=== PATIENT | male | born 1930 | race Caucasian/White ===

== ENCOUNTER 2019-01-17 17:40 | Inpatient (IN) ==
--- NOTE | 2019-01-17 17:57 | Emergency Department Note ---
Disposition Clinical Impression: Pneumonia, Atrial fibrillation, Sepsis, Chronic renal failure, Frail elderly, Anemia, Hypoxemia, History of CHF (congestive heart failure), Elevated troponin, Abnormal EKG Disposition: Admitted As Inpatient General Adult HPI - General Stated complaint: CHF/SOB/Decreased O2 Time Seen by Provider: 01/17/19 17:56 - History of Present Illness HPI Narrative: 88-year-old male with a history of COPD and CHF reports emergency department complaining of cough and shortness of breath. Per report the patient was recently admitted at [facility] subsequently discharged. He saw his primary care physician yesterday, family members report low oxygen levels in the 75% range. There is no history of chest pain. No history of syncope leg swelling or pain or coughing up blood. Fever cough and shortness of breath or noted. There is no history of abdominal pain vomiting diarrhea no confusion or difficulty moving the arms or legs independently no falls or injuries. The patient and family are concerned that he is not improving after being diagnosed with pneumonia and that his O2 levels remained persistently low. - Related Data Home Medications Medication Instructions Recorded Confirmed Acetaminophen [Tylenol] 325 mg PO Q6HR PRN 02/24/17 01/17/19 Metoprolol XL (24 HR) Succ [Toprol 25 mg PO BID 02/24/17 01/17/19 XL] Omeprazole [PriLOSEC] 40 mg PO DAILY 02/24/17 01/17/19 RX: Aspirin 325 mg PO DAILY 02/24/17 01/17/19 Atorvastatin [Lipitor] 40 mg PO HS 01/17/19 01/17/19 Furosemide [Lasix] 40 mg PO DAILY 01/17/19 01/17/19 Levofloxacin [Levaquin] 750 mg PO DAILY 01/17/19 01/17/19 Losartan [Cozaar] 50 mg PO DAILY 01/17/19 01/17/19 Allergies Allergy/AdvReac Type Severity Reaction Status Date / Time No Known Allergies Allergy Verified 08/30/17 04:53 All systems ED: reviewed and negative except as stated. Past Medical History - Past Medical History Medical history: Reports: arthritis, atrial fibrillation, CHF, hypertension, RA Surgical history: Reports: orthopedic, other (c-spine surgery - February 2017) Psychiatric history: Reports: no psych history - Social History Smoking Status: Never smoker Smokeless Tobacco Status: No Alcohol use: Reports: occasionally Drug use: Reports: none Physical Exam - General Limitations: no limitations General appearance: alert, in no apparent distress - Head Head exam: atraumatic, normocephalic, normal inspection - Eye Eye exam: Present: normal appearance, PERRL, EOMI - ENT ENT exam: normal exam, normal oropharynx, mucous membranes moist - Neck Neck exam: Present: normal inspection, full ROM, trachea midline - Chest Chest inspection: Present: symmetric chest wall rise. Absent: tenderness - Respiratory Respiratory exam: Present: wheezes (Worse on right), prolonged expiratory phase. Absent: respiratory distress - Cardiovascular Cardiovascular exam: Present: normal rhythm, tachycardia - Abdominal Exam Abdominal exam: Present: soft, Non-Tender, normal bowel sounds. Absent: tenderness, distention, guarding, rebound, rigidity - Extremities Exam Extremities exam: Present: normal inspection, full ROM, normal capillary refill. Absent: tenderness, pedal edema, joint swelling, calf tenderness - Expanded Lower Extremity Exam Lower leg exam: Absent: Homans' sign - Back Exam Back exam: Present: normal inspection, full ROM. Absent: tenderness, CVA tenderness (R), CVA tenderness (L), vertebral tenderness - Neurological Exam Neurological exam: Present: alert, oriented X3, CN II-XII intact. Absent: motor sensory deficit - Psychiatric Psychiatric exam: Present: normal affect, normal mood - Skin Skin exam: Present: warm, dry, intact, normal color Course Vital Signs Temperature 99.9 F H 01/17/19 18:02 Pulse Rate 120 01/17/19 18:02 Respiratory Rate 22 01/17/19 18:02 Blood Pressure 137/88 01/17/19 18:02 O2 Sat by Pulse Oximetry 98 01/17/19 18:02 Temperature 98.7 F 01/17/19 23:11 Pulse Rate 100 01/17/19 23:11 Respiratory Rate 15 01/17/19 23:11 Blood Pressure 106/65 01/17/19 23:11 O2 Sat by Pulse Oximetry 96 01/18/19 01:16 Oxygen Delivery Oxygen Delivery Nasal Cannula Medical Decision Making - [facility] Narrative Medical decision making narrative: The patient is elderly, hypoxemia, tachycardic and tachypnea, he is requiring oxygen emergency department and appears to have pneumonitis. X-ray abnormal, CT recommended, CT without contrast ordered. The patient was given DuoNeb Solu- Medrol and Levaquin emergency Department blood cultures were sent. Lactic acid negative. The patient's EKG shows atrial fibrillation with left bundle-branch block changes similar to prior. The patient does have an elevated troponin but denies chest pain. Aspirin was ordered. Based on the patient's age, hypoxemia, apparent failed outpatient therapy, history of CHF, renal failure, anemia, persistent tachycardia tachypnea and noted chest x-ray changes, I thought it would be appropriate to admit the patient the hospital. The patient and family are highly agreeable. I discussed the case with the hospitalist on-call who has accepted the patient to their care. - Lab Data Lab results reviewed: Yes I reviewed the patient's lab results. Result diagrams: 01/17/19 18:12 01/17/19 18:12 Lab Results 01/17/19 01/17/19 01/17/19 Range/Units 18:12 18:12 18:12 WBC 5.9 (4.3-11.1) K/mcL RBC 3.47 L (4.19-5.50) M/mcL Hgb 10.9 L (12.9-16.9) g/dL Hct 33.5 L (37.5-50.1) % MCV 96.5 (83.0-100.0) fL MCH 31.4 (28.0-33.3) pg MCHC 32.5 (31.6-35.5) g/dL RDW 14.1 (11.5-14.5) % Plt Count 109 L (140-400) K/mcL MPV 10.7 (9.4-12.4) fL Immature Gran % 0.3 (0-4) % Seg Neutrophils % 84.5 % Lymphocytes % 6.8 % Monocytes % 8.4 % Eosinophils % 0.0 % Basophils % 0.0 % Neutrophils # 5.0 (1.6-8.9) K/mcL Lymphocytes # 0.4 L (0.6-4.6) K/mcL Monocytes # 0.5 (0.0-1.3) K/mcL Eosinophils # 0.0 (0.0-0.6) K/mcL Basophils # 0.0 (0.0-0.2) K/mcL PT 14.7 H (9.4-12.1) Seconds INR 1.3 APTT 33.8 (26.0-36.0) Seconds Sample Site ABG pH (7.32-7.45) pH Units ABG pCO2 (35-45) mmHg ABG pO2 (85-104) mmHg ABG HCO3 (21-27) mEq/L ABG Total CO2 (20-26) mEq/L ABG O2 Saturation (95-98) % ABG Base Excess (-2 to 3) mEq/L Royer Test O2 Delivery Device Inspired O2 (1-15=lpm [id number]=%) Sodium (136-145) mEq/L Potassium (3.5-5.1) mEq/L Chloride (98-107) mEq/L Carbon Dioxide (23-29) mEq/L BUN (8-23) mg/dL Creatinine (0.70-1.30) mg/dL Est GFR ( Amer) (> 60) Est GFR (Non-Af Amer) (> 60) BUN/Creatinine Ratio (6-26) Glucose (70-105) mg/dL Calculated Osmolality (280-300) Lactic Acid (0.5-2.2) mmol/L Calcium (8.6-10.3) mg/dL Total Bilirubin 1.0 (0.3-1.0) mg/dL Direct Bilirubin 0.4 H (0.0-0.2) mg/dL Indirect Bilirubin 0.6 (0.0-1.2) mg/dL AST 54 H (13-39) Units/L ALT 24 (7-52) Units/L Alkaline Phosphatase 85 (34-104) Units/L Troponin I (< 0.04) ng/mL B-Natriuretic Peptide (Less than 100) pg/mL Serum Total Protein 6.4 (6.4-8.9) g/dL Albumin 3.9 (3.5-5.7) g/dL Globulin 2.5 (2.4-3.5) g/dL Albumin/Globulin Ratio 1.6 (1.1-2.2) 01/17/19 01/17/19 01/17/19 Range/Units 18:12 18:12 18:12 WBC (4.3-11.1) K/mcL RBC (4.19-5.50) M/mcL Hgb (12.9-16.9) g/dL Hct (37.5-50.1) % MCV (83.0-100.0) fL MCH (28.0-33.3) pg MCHC (31.6-35.5) g/dL RDW (11.5-14.5) % Plt Count (140-400) K/mcL MPV (9.4-12.4) fL Immature Gran % (0-4) % Seg Neutrophils % % Lymphocytes % % Monocytes % % Eosinophils % % Basophils % % Neutrophils # (1.6-8.9) K/mcL Lymphocytes # (0.6-4.6) K/mcL Monocytes # (0.0-1.3) K/mcL Eosinophils # (0.0-0.6) K/mcL Basophils # (0.0-0.2) K/mcL PT (9.4-12.1) Seconds INR APTT (26.0-36.0) Seconds Sample Site ABG pH (7.32-7.45) pH Units ABG pCO2 (35-45) mmHg ABG pO2 (85-104) mmHg ABG HCO3 (21-27) mEq/L ABG Total CO2 (20-26) mEq/L ABG O2 Saturation (95-98) % ABG Base Excess (-2 to 3) mEq/L Royer Test O2 Delivery Device Inspired O2 (1-15=lpm [id number]=%) Sodium 135 L (136-145) mEq/L Potassium 3.5 (3.5-5.1) mEq/L Chloride 97 L (98-107) mEq/L Carbon Dioxide 24 (23-29) mEq/L BUN 44 H (8-23) mg/dL Creatinine 1.97 H (0.70-1.30) mg/dL Est GFR ( Amer) 39 L (> 60) Est GFR (Non-Af Amer) 32 L (> 60) BUN/Creatinine Ratio 22 (6-26) Glucose 144 H (70-105) mg/dL Calculated Osmolality 294 (280-300) Lactic Acid 1.9 (0.5-2.2) mmol/L Calcium 8.5 L (8.6-10.3) mg/dL Total Bilirubin (0.3-1.0) mg/dL Direct Bilirubin (0.0-0.2) mg/dL Indirect Bilirubin (0.0-1.2) mg/dL AST (13-39) Units/L ALT (7-52) Units/L Alkaline Phosphatase (34-104) Units/L Troponin I 0.31 H* (< 0.04) ng/mL B-Natriuretic Peptide 660 H (Less than 100) pg/mL Serum Total Protein (6.4-8.9) g/dL Albumin (3.5-5.7) g/dL Globulin (2.4-3.5) g/dL Albumin/Globulin Ratio (1.1-2.2) 01/17/19 Range/Units 19:49 WBC (4.3-11.1) K/mcL RBC (4.19-5.50) M/mcL Hgb (12.9-16.9) g/dL Hct (37.5-50.1) % MCV (83.0-100.0) fL MCH (28.0-33.3) pg MCHC (31.6-35.5) g/dL RDW (11.5-14.5) % Plt Count (140-400) K/mcL MPV (9.4-12.4) fL Immature Gran % (0-4) % Seg Neutrophils % % Lymphocytes % % Monocytes % % Eosinophils % % Basophils % % Neutrophils # (1.6-8.9) K/mcL Lymphocytes # (0.6-4.6) K/mcL Monocytes # (0.0-1.3) K/mcL Eosinophils # (0.0-0.6) K/mcL Basophils # (0.0-0.2) K/mcL PT (9.4-12.1) Seconds INR APTT (26.0-36.0) Seconds Sample Site R Radial ABG pH 7.44 (7.32-7.45) pH Units ABG pCO2 35 (35-45) mmHg ABG pO2 75 L (85-104) mmHg ABG HCO3 24 (21-27) mEq/L ABG Total CO2 25 (20-26) mEq/L ABG O2 Saturation 96 (95-98) % ABG Base Excess 0 (-2 to 3) mEq/L Royer Test Positive O2 Delivery Device Cannula Inspired O2 40.0 (1-15=lpm [id number]=%) Sodium (136-145) mEq/L Potassium (3.5-5.1) mEq/L Chloride (98-107) mEq/L Carbon Dioxide (23-29) mEq/L BUN (8-23) mg/dL Creatinine (0.70-1.30) mg/dL Est GFR ( Amer) (> 60) Est GFR (Non-Af Amer) (> 60) BUN/Creatinine Ratio (6-26) Glucose (70-105) mg/dL Calculated Osmolality (280-300) Lactic Acid (0.5-2.2) mmol/L Calcium (8.6-10.3) mg/dL Total Bilirubin (0.3-1.0) mg/dL Direct Bilirubin (0.0-0.2) mg/dL Indirect Bilirubin (0.0-1.2) mg/dL AST (13-39) Units/L ALT (7-52) Units/L Alkaline Phosphatase (34-104) Units/L Troponin I (< 0.04) ng/mL B-Natriuretic Peptide (Less than 100) pg/mL Serum Total Protein (6.4-8.9) g/dL Albumin (3.5-5.7) g/dL Globulin (2.4-3.5) g/dL Albumin/Globulin Ratio (1.1-2.2) - Radiology Data Radiology results reviewed: Yes I reviewed the patient's radiology results.
[2019-01-17 18:32] LABS: Hematocrit 33.5 % (37.5-50.1); Hemoglobin 10.9 g/dL (12.9-16.9); Immature Granulocytes % 0.3 % (0-4); Lymphocytes # 0.4 K/mcL (0.6-4.6); Lymphocytes % 6.8 %; Mean Corpuscular HGB Conc 32.5 g/dL (31.6-35.5); Mean Corpuscular Hemoglobin 31.4 pg (28.0-33.3); Mean Corpuscular Volume 96.5 fL (83.0-100.0); Mean Platelet Volume 10.7 fL (9.4-12.4); Monocytes # 0.5 K/mcL (0.0-1.3); Monocytes % 8.4 %; Platelet Count 109 K/mcL (140-400); Red Blood Count 3.47 M/mcL (4.19-5.50); Red Cell Distribution Width 14.1 % (11.5-14.5); Segmented Neutrophils % 84.5 %
[2019-01-17 18:40] LABS: INR 1.3; Prothrombin Time 14.7 Seconds (9.4-12.1)
[2019-01-17 18:43] LABS: Activated Partial Thrombo Time 33.8 Seconds (26.0-36.0)
[2019-01-17 18:54] LABS: Calcium 8.5 mg/dL (8.6-10.3); Potassium 3.5 mEq/L (3.5-5.1)
[2019-01-17 18:55] LABS: Albumin 3.9 g/dL (3.5-5.7); Albumin/Globulin Ratio 1.6 (1.1-2.2); Bilirubin,Direct 0.4 mg/dL (0.0-0.2); Bilirubin,Indirect 0.6 mg/dL (0.0-1.2); Globulin 2.5 g/dL (2.4-3.5); Total Protein 6.4 g/dL (6.4-8.9)
[2019-01-17] MEDS ORDERED: Levofloxacin 750 MG/150 ML 750 MG/150 ML BAG IVPB ONE (19:04)
[2019-01-17] MEDS ORDERED: Ipratropium/Albuterol Neb 3 ML IH ONE (19:04)
[2019-01-17] MEDS ORDERED: methylPREDNISolone 125 MG/2 ML VIAL IVP ONE (19:04)
[2019-01-17 19:06] LABS: Troponin I 0.31 ng/mL (< 0.04)
[2019-01-17] MEDS ORDERED: Aspirin 325 MG TABLET PO ONE (19:12)
[2019-01-17] MEDS ORDERED: *HR* LORazepam 2 MG/ML VIAL IVP ONE (19:23)
[2019-01-17 19:53] LABS: ABG Base Excess 0 mEq/L (-2 to 3); ABG HCO3 24 mEq/L (21-27); ABG Oxygen Saturation 96 % (95-98); ABG PCO2 35 mmHg (35-45); ABG PH 7.44 pH Units (7.32-7.45); ABG PO2 75 mmHg (85-104); ABG TCO2 25 mEq/L (20-26)
[2019-01-18] MEDS ORDERED: Naloxone 0.4 MG/ML INJ IVP PRN (03:24)
[2019-01-18] MEDS ORDERED: Heparin 25,000 UNIT/250 ML D5W 25,000 UNIT/250 ML IV.SOLN IVC SCH (03:30)
[2019-01-18] MEDS ORDERED: *HR* Heparin 5,000 UNIT/ML VIAL IVP PRN ×2 (03:30)
[2019-01-18] MEDS ORDERED: *HR* Heparin 5,000 UNIT/ML VIAL IVP ONE (03:30)
[2019-01-18] MEDS ORDERED: Albuterol 2.5 MG/3 ML NEBULIZER IH PRN (03:33)
--- NOTE | 2019-01-18 04:40 | Internal Med History&Physical ---
Date of Encounter: 01/18/19 Time of Encounter: 02:40 Internal Medicine - H&P: HPI Chief complaint: Pneumonia Admitted From: Emergency Dept Plans for Post Hospital Care: Home History of present illness: Mr. Oconnor is a 88 year old male Patient presented to the emergency room with shortness of breath and cough. He had recently been seen at prior hospital but was discharged. While visiting his primary care physician he was noted to have oxygen saturation in the mid 70s. His cough is productive of brown sputum. He says he said shortness of breath for 2-3 weeks, but it gradually has become worse. He is not on oxygen at home. He was diagnosed with pneumonia patient, was put on antibiotics but did not improve. His family brought him to the emergency room for further evaluation. In the emergency room patient's temperature was 99.9 initially with a heart rate of 120 and respiratory rate of 22. CBC showed a white count of 5.9, hemoglobin of 10.9 and platelets of 109. BMP showed a creatinine of 1.97 and a GFR of 32. Patient's initial troponin was elevated at 0.31. BNP was 660. Because patient was initially hypoxic, patient was going to be put on BiPAP. An ABG was ordered at that time which was essentially normal aside from a low pO2 of 75. After being on nasal cannula oxygen, patient's oxygen saturations improved. Chest x- ray revealed lung opacity concerning for possible pneumonia and CT was recommended. Chest CT revealed left upper lobe consolidation, likely pneumonia. Also revealed a spiculated right upper lobe nodule measuring 7 mm. He was given breathing treatments and IV steroids as well as Levaquin. EKG showed no acute changes. Because of his elevated troponin, patient was also given aspirin. Patient has denied chest pain. He was admitted to the hospital for further management. Upon my assessment, patient is resting comfortably in hospital bed in no acute distress. He states that his breathing has improved, denies chest pain, abdominal pain, nausea, vomiting, diarrhea and constipation. He denies smoking and alcohol use. He is a full code. Past Med Surg Social Fam HX - Past Medical History Medical history: arthritis, atrial fibrillation, CHF, hypertension, RA Additional medical history: PAF Psychiatric history: no psych history - Past Surgical History Surgical History: orthopedic, other (c-spine surgery - February 2017) Additional surgical history: CARPAL TUNNEL RELEASE. I&D OF HIP - Social History Smoking Status: Never smoker Smokeless Tobacco Status: No Alcohol use: occasionally Drug use: none - Family History Son Hx Family Cardiac Disorders: Yes (a fib, stents, HTN) Internal Medicine - H&P: Meds Acetaminophen [Tylenol] 325 mg PO Q6HR PRN 02/24/17 [History] Aspirin 325 mg PO DAILY 02/24/17 [History] Metoprolol XL (24 HR) Succ [Toprol XL] 25 mg PO BID 02/24/17 [History] Omeprazole [PriLOSEC] 40 mg PO DAILY 02/24/17 [History] Atorvastatin [Lipitor] 40 mg PO HS 01/17/19 [History] Furosemide [Lasix] 40 mg PO DAILY 01/17/19 [History] Levofloxacin [Levaquin] 750 mg PO DAILY 01/17/19 [History] Losartan [Cozaar] 50 mg PO DAILY 01/17/19 [History] Allergy/AdvReac Type Severity Reaction Status Date / Time No Known Allergies Allergy Verified 08/30/17 04:53 All Systems PM: A 10-system review of systems was performed and is negative for pertinent findings except as documented above in the HPI. - Constitutional Vitals: Temp Pulse Resp BP Pulse Ox 97.6 F 80 16 122/88 92 01/18/19 03:46 01/18/19 03:46 01/18/19 03:46 01/18/19 03:46 01/18/19 03:46 General appearance: Present: cooperative, A&O X 3, pleasant, no acute distress, answers questions appropriately Exam: - - Head Head exam: Present: normal inspection - Eye Eye exam: Present: EOMI, normal appearance - Respiratory Respiratory exam: Present: rales, wheezes. Absent: CTAB, respiratory distress, rhonchi - Cardiovascular Cardiovascular exam: Present: irregular rhythm. Absent: diastolic murmur, systolic murmur - GI/Abdominal GI/Abdominal exam: Present: normal bowel sounds, soft. Absent: tenderness - Extremities Exam Extremities exam: Present: warm, radial pulses palpable and symmetrical. Absent: calf tenderness, pedal edema, tenderness - Neurological Exam Neurological exam: Present: no focal deficits, strengths equal and symetr throughout. Absent: motor sensory deficit, facial droop, speech deficit - Skin Skin exam: Present: dry, normal color, warm Internal Med - H&P Results - Labs CBC & Chem 7: 01/17/19 18:12 01/17/19 18:12 Labs: Short CBC 01/17/19 Range/Units 18:12 WBC 5.9 (4.3-11.1) K/mcL Hgb 10.9 L (12.9-16.9) g/dL Hct 33.5 L (37.5-50.1) % Plt Count 109 L (140-400) K/mcL Neutrophils # 5.0 (1.6-8.9) K/mcL BMP 01/17/19 18:12 Sodium 135 L Potassium 3.5 Chloride 97 L Carbon Dioxide 24 BUN 44 H Creatinine 1.97 H Glucose 144 H Calcium 8.5 L Cardiac Enzymes 01/17/19 01/18/19 Range/Units 18:12 01:39 Troponin I 0.31 H* 0.38 H* (< 0.04) ng/mL Liver Function 01/17/19 Range/Units 18:12 Total Bilirubin 1.0 (0.3-1.0) mg/dL Direct Bilirubin 0.4 H (0.0-0.2) mg/dL AST 54 H (13-39) Units/L ALT 24 (7-52) Units/L Alkaline Phosphatase 85 (34-104) Units/L Albumin 3.9 (3.5-5.7) g/dL - ABG Interpretation ABG results: 01/17/19 19:49 ABG pH 7.44 ABG pCO2 35 ABG pO2 75 L ABG HCO3 24 ABG Total CO2 25 ABG O2 Saturation 96 ABG Base Excess 0 - Impressions ITS Impressions Chest X-Ray 01/17/19 17:58 IMPRESSION: Relatively stable left mid and lower lung opacification concerning for possible pneumonia with underlying parenchymal lesion not excluded. Recommend radiographic follow-up after therapeutic interval. If there is persistence of this finding, CT of the chest is advised. D/ / Sanford Gill / Sanford Gill Interpreting Provider: Sanford Gill Chest CT 01/17/19 19:59 IMPRESSION: Left upper lobe consolidation, likely pneumonia. Recommend follow-up in 3 months to document resolution and exclude an underlying lesion. Spiculated right upper lobe nodule measuring 7 mm can be reassessed at follow-up. D/ / 01/17/2019 21:47:10 Valerio Weston MD / [email or web address] Interpreting Provider: Valerio Weston MD - Assessment and Plan (1) Pneumonia Current Visit: Yes Status: Acute Assessment and plan: As seen on lung imaging. Patient has been treated outpatient for this as well with Levaquin. The emergency room gave the patient another dose of Levaquin IV as well. He comes patient failed outpatient management with Levaquin, will add vancomycin and Zosyn. Blood cultures were drawn in the emergency room. Continue antibiotics Follow-up blood cultures Continue to monitor Qualifiers: Pneumonia type: due to unspecified organism Laterality: left Lung location: upper lobe of lung Qualified Code(s): J18.1 - Lobar pneumonia, unspecified organism (2) Acute respiratory failure with hypoxia Current Visit: Yes Status: Acute Assessment and plan: Patient requiring oxygen, does not require oxygen at home. Likely secondary to pneumonia. Treatment as above (3) Atrial fibrillation Current Visit: Yes Status: Acute Assessment and plan: Stable, continue home meds Qualifiers: Atrial fibrillation type: chronic Qualified Code(s): I48.2 - Chronic atrial fibrillation (4) Elevated troponin Current Visit: Yes Status: Acute Assessment and plan: Troponin elevated to 0.38 on recheck. Patient has no chest pain, EKG similar to previous. Patient denies significant cardiac history aside from atrial fibr illation. Hold heparin drip secondary to thrombocytopenia quality assurance monitor body Continue to trend troponins Echocardiogram in the morning Consider cardiology consult (5) History of CHF (congestive heart failure) Current Visit: Yes Status: Acute Assessment and plan: Patient takes Lasix at home, BNP improved from value on the day before his admission. Continue Lasix at discharge (6) Incidental lung nodule, > 3mm and < 8mm Current Visit: Yes Status: Acute Assessment and plan: Patient's lung nodule is approximately 7 mm in the right upper lung. Follow-up outpatient with repeat imaging (7) Thrombocytopenia Current Visit: Yes Status: Acute Assessment and plan: Patient's platelets initially were 109, but on recheck dropped to 80. Hold heparin Continue to monitor for signs of bleeding (8) DVT prophylaxis Current Visit: Yes Status: Acute Assessment and plan: Heparin drip initially due to elevated troponin, however patient's platelets continue to drop on recheck to 80. We will stop the heparin drip for now. SCDs - Time Spent With Patient Total time spent is greater than 50% in coordination of care (as documented) at patient's floor/unit and/or counseling patient: Greater than 35 minutes
[2019-01-18] MEDS: Ipratropium/Albuterol Neb 3 ML IH SCH ×4 (04:43→22:22)
[2019-01-18 05:01] LABS: Red Blood Count 3.18 M/mcL (4.19-5.50)
[2019-01-18 05:03] LABS: Hematocrit 30.9 % (37.5-50.1); Hemoglobin 10.2 g/dL (12.9-16.9); Immature Platelets 5.3 % (1.1-6.1); Mean Corpuscular Hemoglobin 32.1 pg (28.0-33.3); Mean Corpuscular Volume 97.2 fL (83.0-100.0); Mean Platelet Volume 10.7 fL (9.4-12.4); Red Cell Distribution Width 14.1 % (11.5-14.5)
[2019-01-18 05:14] LABS: INR 1.2; Prothrombin Time 13.8 Seconds (9.4-12.1)
[2019-01-18 05:18] LABS: Calcium 8.2 mg/dL (8.6-10.3); Potassium 3.3 mEq/L (3.5-5.1)
[2019-01-18 05:58] LABS: Bilirubin,Urine Negative (Negative); Blood,Urine Moderate (Negative); Color,Urine Yellow (Yellow); Glucose,Urine (UA) Normal (Normal); Ketones,Urine Negative (Negative); Leukocyte Esterase,Urine Negative (Negative); Nitrite,Urine Positive (Negative); PH,Urine 5.5 pH Units (5.0-8.0); Protein,Urine 100 mg/dL (Neg-Trace); Specific Gravity,Urine 1.017 (1.010-1.025); Urobilinogen,Urine Normal (Normal)
[2019-01-18 06:00] LABS: Bacteria,Urine None Seen per hpf (None-Few); Hyaline Casts,Urine None Seen per lpf (None-Few); RBC,Urine 0-3 per hpf (0-3); Squamous Epithelial Cell,Urine Many per lpf (None-Few)
[2019-01-18 06:01] LABS: Clarity,Urine Slightly Hazy (Clear)
[2019-01-18 06:15] LABS: Sperm,Urine Present
[2019-01-18] MEDS: predniSONE 20 MG TABLET PO SCH (08:36)
[2019-01-18] MEDS: Piperacillin/Tazobactam 3.375 GM in 0.9 % Sodium Chloride Mini Bag 100 ML IVPB SCH ×2 (08:36→15:23)
--- NOTE | 2019-01-18 10:28 | Cardiology Consult Note ---
<Chirag Mehta - Last Filed: 01/18/19 10:24> Date of Encounter: 01/18/19 Time of Encounter: 10:25 Assessment and Plan (1) Elevated troponin Current Visit: Yes Status: Acute Troponins 0.31, 0.38, 0.35 in setting of PNA and CKD (LORY?). Suspect demand ischemia. Nondiagnostic for ACS. Pt denies chest pain. ECG LBBB--unclear chronicity. Check TTE to evaluate structure and function. If no significant findings, anticipate sign off. (2) LBBB (left bundle branch block) Current Visit: Yes Status: Acute Unclear chronicity. Follows with Dr. Smith outpt. Check TTE. (3) Atrial fibrillation Current Visit: Yes Status: Chronic Known A-Fib hx. 12 hr tele AVG HR 80, A-Fib. Home meds included Toprol XL 25mg BID. Will resume. [id number] (Age, HTN, CHF). High CVA risk. Per pt, on Xarelto in the past. Rep orts stopped due to bleeding/bruising. Follows with Dr. Smith. Continue ASA only. Aware of increased CVA risk. Qualifiers: Atrial fibrillation type: chronic Qualified Code(s): I48.2 - Chronic atrial fibrillation (4) History of CHF (congestive heart failure) Current Visit: Yes Status: Chronic Hx of CHF, unclear type. Check TTE. Home meds included PO Lasix, BB, ARB. Will resume BB. Creatinine 1.99--ARB and Lasix on hold. BNP 660. Appears euvolemic on exam. Discussion w patient/family: The assessment and plan as outlined above was discussed with the patient and/or family members who expressed understanding and agreement. All questions were an swered. Thank you for involving us in the care of your patient. Please call with any questions. I will discuss all the above with Dr. Kimbrough and make changes as necessary. History of Present Illness Consult date: 01/18/19 Consult reason: Elevated troponin Chief complaint: Dyspnea History of present illness: Mr. Oconnor is a 88 year old male with PMH of A-Fib, CHF (unknown type), HTN, that presented to ED with shortness of breath and cough. He was noted to have O2 sats in the mid 70s. His cough is productive of brown sputum. He says he said shortness of breath for 2-3 weeks, but it gradually has become worse. He reports chest pain only when coughing. BNP was 660. CXR revealed lung opacity concerning for possible pneumonia and CT was recommended. Chest CT revealed left upper lobe consolidation, likely pneumonia. Also revealed a spiculated right upper lobe nodule measuring 7 mm. Troponins 0.31, 0.38, 0.35. Cardiology consulted for further recs. Past Med Surg Social Fam HX - Past Medical History Medical history: arthritis, atrial fibrillation, CHF, hypertension, RA Additional medical history: PAF Psychiatric history: no psych history - Past Surgical History Surgical History: orthopedic, other (c-spine surgery - February 2017) Additional surgical history: CARPAL TUNNEL RELEASE. I&D OF HIP - Social History Smoking Status: Never smoker Smokeless Tobacco Status: No Alcohol use: occasionally Drug use: none - Family History Son Hx Family Cardiac Disorders: Yes (a fib, stents, HTN) Medications and Allergies Acetaminophen [Tylenol] 325 mg PO Q6HR PRN 02/24/17 [History] Aspirin 325 mg PO DAILY 02/24/17 [History] Metoprolol XL (24 HR) Succ [Toprol XL] 25 mg PO BID 02/24/17 [History] Omeprazole [PriLOSEC] 40 mg PO DAILY 02/24/17 [History] Atorvastatin [Lipitor] 40 mg PO HS 01/17/19 [History] Furosemide [Lasix] 40 mg PO DAILY 01/17/19 [History] Levofloxacin [Levaquin] 750 mg PO DAILY 01/17/19 [History] Losartan [Cozaar] 50 mg PO DAILY 01/17/19 [History] Allergy/AdvReac Type Severity Reaction Status Date / Time No Known Allergies Allergy Verified 08/30/17 04:53 All Systems Review: The remainder of the systems were reviewed and are negative - Cardiovascular Cardiovascular: as per HPI, dyspnea at rest, dyspnea on exertion - Respiratory Respiratory: cough, dyspnea Physical Examination Vital Signs, Last 4 Hours Temp Pulse Resp BP Pulse Ox 01/18/19 08:38 99 01/18/19 07:12 98.6 F 76 17 131/85 99 Vital Signs Temp Pulse Resp BP Pulse Ox 01/18/19 08:38 99 01/18/19 07:12 98.6 F 76 17 131/85 99 01/18/19 04:43 18 99 01/18/19 03:46 97.6 F 80 16 122/88 92 01/18/19 01:16 96 01/17/19 23:11 98.7 F 100 15 106/65 98 01/17/19 21:54 26 139/86 01/17/19 19:51 24 96 01/17/19 18:02 99.9 F H 120 22 137/88 98 Intake and Output 01/17/19 01/18/19 01/18/19 23:59 07:59 15:59 Intake Total 150 / 150 Output Total 200 / 200 Balance 150 / 150 -200 / -200 Intake: IV Fluids 150 / 150 Levaquin Premix 750mg/150 mL 150 / 150 750 mg In 150 ml @ 100 mls/hr IVPB ONCE ONE Rx#:[id number] Output: Urine 200 / 200 Other: Weight 75.381 kg 75 kg Blood Glucose* 144 Patient Weight 01/18/19 23:59 Weight 75 kg General: Conversant, No Apparent Distress HEENT: Atraumatic, Normocephaly, Mucus Membranes Moist Neck: No JVD Cardiac: Other (irregularly irregular rhythm) Lungs: Other (rhonchi, wheezes) Neuro: Alert and responsive, No focal deficits noted Abdomen: Soft, Non-Tender Skin: No rashes noted on visualized skin Musculoskeletal: No Chest Wall Tenderness Extremities: No Clubbing, No Cyanosis, No Edema, Normal Pulses Results 01/18/19 04:46 01/18/19 04:46 Lab Results 01/17/19 01/17/19 01/17/19 18:12 18:12 18:12 WBC 5.9 Hgb 10.9 L Hct 33.5 L Plt Count 109 L INR 1.3 APTT 33.8 Sodium Potassium Chloride Carbon Dioxide BUN Creatinine Glucose Calcium Total Bilirubin 1.0 AST 54 H ALT 24 Alkaline Phosphatase 85 Troponin I B-Natriuretic Peptide 01/17/19 01/17/19 01/18/19 18:12 18:12 01:39 WBC Hgb Hct Plt Count INR APTT Sodium 135 L Potassium 3.5 Chloride 97 L Carbon Dioxide 24 BUN 44 H Creatinine 1.97 H Glucose 144 H Calcium 8.5 L Total Bilirubin AST ALT Alkaline Phosphatase Troponin I 0.31 H* 0.38 H* B-Natriuretic Peptide 660 H 01/18/19 01/18/19 01/18/19 04:46 04:46 04:46 WBC 4.6 Hgb 10.2 L Hct 30.9 L Plt Count 80 L INR 1.2 APTT Sodium 136 Potassium 3.3 L Chloride 101 Carbon Dioxide 25 BUN 49 H Creatinine 1.99 H Glucose 144 H Calcium 8.2 L Total Bilirubin AST ALT Alkaline Phosphatase Troponin I B-Natriuretic Peptide 01/18/19 07:20 WBC Hgb Hct Plt Count INR APTT Sodium Potassium Chloride Carbon Dioxide BUN Creatinine Glucose Calcium Total Bilirubin AST ALT Alkaline Phosphatase Troponin I 0.35 H* B-Natriuretic Peptide Short CBC 01/18/19 01/17/19 Range/Units 04:46 18:12 WBC 4.6 5.9 (4.3-11.1) K/mcL Hgb 10.2 L 10.9 L (12.9-16.9) g/dL Hct 30.9 L 33.5 L (37.5-50.1) % Plt Count 80 L 109 L (140-400) K/mcL Neutrophils # 5.0 (1.6-8.9) K/mcL BMP 01/18/19 01/17/19 Range/Units 04:46 18:12 Sodium 136 135 L (136-145) mEq/L Potassium 3.3 L 3.5 (3.5-5.1) mEq/L Chloride 101 97 L (98-107) mEq/L Carbon Dioxide 25 24 (23-29) mEq/L BUN 49 H 44 H (8-23) mg/dL Creatinine 1.99 H 1.97 H (0.70-1.30) mg/dL Glucose 144 H 144 H (70-105) mg/dL Calcium 8.2 L 8.5 L (8.6-10.3) mg/dL Cardiac Enzymes 01/18/19 01/18/19 01/17/19 Range/Units 07:20 01:39 18:12 Troponin I 0.35 H* 0.38 H* 0.31 H* (< 0.04) ng/mL Liver Function 01/17/19 Range/Units 18:12 Total Bilirubin 1.0 (0.3-1.0) mg/dL Direct Bilirubin 0.4 H (0.0-0.2) mg/dL AST 54 H (13-39) Units/L ALT 24 (7-52) Units/L Alkaline Phosphatase 85 (34-104) Units/L Albumin 3.9 (3.5-5.7) g/dL Urine 01/18/19 Range/Units 05:44 Urine Color Yellow (Yellow) Urine Clarity Slightly Hazy (Clear) Urine pH 5.5 (5.0-8.0) pH Units Ur Specific [place] 1.017 (1.010-1.025) Urine Protein 100 H (Neg-Trace) mg/dL Urine Glucose (UA) Normal (Normal) mg/dL Impressions Chest X-Ray 01/17/19 17:58 IMPRESSION: Relatively stable left mid and lower lung opacification concerning for possible pneumonia with underlying parenchymal lesion not excluded. Recommend radiographic follow-up after therapeutic interval. If there is persistence of this finding, CT of the chest is advised. D/ / Sanford Gill / Sanford Gill Interpreting Provider: Sanford Gill Chest CT 01/17/19 19:59 IMPRESSION: Left upper lobe consolidation, likely pneumonia. Recommend follow-up in 3 months to document resolution and exclude an underlying lesion. Spiculated right upper lobe nodule measuring 7 mm can be reassessed at follow-up. D/ / 01/17/2019 21:47:10 [facility] Provider: Valerio Weston MD Active Medications Albuterol Sulfate (Proventil Neb) 2.5 mg IH Q2H PRN PRN Reason: Shortness Of Breath/Wheezing Stop: 07/20/19 03:34 Albuterol/Ipratropium (Duoneb) 3 ml IH QIDR [facility] Stop: 07/20/19 05:01 Last Admin: 01/18/19 10:19 Dose: 3 ml Levofloxacin/Dextrose (Levaquin Premix 750mg/150 Ml) 750 mg in 150 mls @ 100 mls/hr IVPB Q48H [facility]; Protocol Stop: 07/21/19 18:01 Piperacillin Sod/Tazobactam (Sod 3.375 gm/ Sodium Chloride) 100 mls @ 25 mls/hr IVPB Q8HR [facility] Stop: 07/20/19 08:01 Last Admin: 01/18/19 08:36 Dose: 25 mls/hr Naloxone HCl (Narcan) 0.4 mg IVP Q2M PRN PRN Reason: SEE COMMENTS Stop: 07/20/19 03:25 Prednisone (Prednisone) 40 mg PO DAILY [facility] Stop: 07/20/19 09:01 Last Admin: 01/18/19 08:36 Dose: 40 mg Vancomycin HCl (Vancocin) 0 each IVPB RPHPROT PRN PRN Reason: PULSE DOSE Stop: 07/20/19 06:03 - EKG Interpretation EKG results cardiology: personally reviewed (A-Fib rate 109, LBBB), other (12 hr tele AVG HR 80, A-Fib) Consult Discharge Plan - Plan Referrals: Yari Dukes MD [Primary Care Provider] - <Cassie Kimbrough - Last Filed: 01/18/19 15:32> Date of Encounter: 01/18/19 - Attending Attestation Patient was seen and evaluated independently by me. Findings, assessment and plan were discussed at length with patient, questions answered. Agree with nurse practitioner's/resident's documentation. Addition as follows, 88 yoCF ho chronic afib on ASA no A/C due to bleeding on xarelto, CHF unclear EF, HTN, RA. P/w worsening dyspnea 2 wks and pleuritic chest pain. IMP PNA and RUL nodule. ECG Afib RVR, LBBB (unclear chronicity). Trop max 0.38. Tele Afib PVCs. TTE EF 45%, global, mil cLVH, RV n, valve ok, no evidence of PH. Cr 1.9-2, K 3.3. BP stable, B/L scattered rhonchi, IR, no LE edema A: Pneumonia, hypoxemia Mild troponin elevation, type II NSTEMI likely Afib RVR, now rate ok, on ASA 325 (per primary executive services administrator) HFrEF EF 45%, global need prior Echo from Dr Luis STEPHENSON LORY vs CKD P: c/w toprol for rate ctr, up-titration as needed for VR 80-110 after LORY resolved, resume home ARB request prior cardiac records from Dr Luis Kimbrough MD, PhD Assessment and Plan Discussion w patient/family: The assessment and plan as outlined above was discussed with the patient and/or family members who expressed understanding and agreement. All questions were answered. Thank you for involving us in the care of your patient. Please call with any questions. History of Present Illness History of present illness: Mr. Oconnor is a 88 year old male All Systems Review: The remainder of the systems were reviewed and are negative Physical Examination Vital Signs, Last 4 Hours Temp Pulse Resp BP Pulse Ox 01/18/19 11:33 97.4 F L 82 14 118/83 98 Results 01/18/19 04:46 01/18/19 04:46 Lab Results 01/17/19 01/17/19 01/17/19 18:12 18:12 18:12 WBC 5.9 Hgb 10.9 L Hct 33.5 L Plt Count 109 L INR 1.3 APTT 33.8 Sodium Potassium Chloride Carbon Dioxide BUN Creatinine Glucose Calcium Total Bilirubin 1.0 AST 54 H ALT 24 Alkaline Phosphatase 85 Troponin I B-Natriuretic Peptide 01/17/19 01/17/19 01/18/19 18:12 18:12 01:39 WBC Hgb Hct Plt Count INR APTT Sodium 135 L Potassium 3.5 Chloride 97 L Carbon Dioxide 24 BUN 44 H Creatinine 1.97 H Glucose 144 H Calcium 8.5 L Total Bilirubin AST ALT Alkaline Phosphatase Troponin I 0.31 H* 0.38 H* B-Natriuretic Peptide 660 H 01/18/19 01/18/19 01/18/19 04:46 04:46 04:46 WBC 4.6 Hgb 10.2 L Hct 30.9 L Plt Count 80 L INR 1.2 APTT Sodium 136 Potassium 3.3 L Chloride 101 Carbon Dioxide 25 BUN 49 H Creatinine 1.99 H Glucose 144 H Calcium 8.2 L Total Bilirubin AST ALT Alkaline Phosphatase Troponin I B-Natriuretic Peptide 01/18/19 07:20 WBC Hgb Hct Plt Count INR APTT Sodium Potassium Chloride Carbon Dioxide BUN Creatinine Glucose Calcium Total Bilirubin AST ALT Alkaline Phosphatase Troponin I 0.35 H* B-Natriuretic Peptide
[2019-01-18] MEDS: Aspirin 325 MG TABLET PO SCH (12:02)
--- NOTE | 2019-01-18 15:58 | Event Note ---
Date of Encounter: 01/18/19 Time of Encounter: 15:56 Patient seen and examined at bedside. Patient states he feels better. He reports continued cough with yellow sputum production but feels her shortness of breath is improved. On exam he is awake and alert. Lungs are diminished bibasilar, otherwise no rales, wheezes Patient admitted for pneumonia, failed outpatient therapy with Levaquin. Currently on vancomycin, Zosyn, Levaquin. MRSA, respiratory infection panel pending. Strep and legionella urinary antigen pending.
--- NOTE | 2019-01-18 18:05 | Electrocardiograph Report ---
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
[2019-01-18] MEDS: Metoprolol XL (24 HR) Succ 25 MG TAB.ER.24H PO SCH (20:44)
[2019-01-19] MEDS: Piperacillin/Tazobactam 3.375 GM in 0.9 % Sodium Chloride Mini Bag 100 ML IVPB SCH ×2 (00:19→08:18)
[2019-01-19] MEDS: Ipratropium/Albuterol Neb 3 ML IH SCH ×4 (05:12→22:46)
[2019-01-19 06:26] LABS: Mean Corpuscular Volume 97.6 fL (83.0-100.0)
[2019-01-19 06:28] LABS: Basophils % 0.1 %; Hematocrit 32.6 % (37.5-50.1); Hemoglobin 10.5 g/dL (12.9-16.9); Immature Granulocytes % 0.3 % (0-4); Immature Platelets 6.1 % (1.1-6.1); Lymphocytes # 0.5 K/mcL (0.6-4.6); Lymphocytes % 6.8 %; Mean Corpuscular HGB Conc 32.2 g/dL (31.6-35.5); Mean Corpuscular Hemoglobin 31.4 pg (28.0-33.3); Mean Platelet Volume 11.1 fL (9.4-12.4); Monocytes # 0.4 K/mcL (0.0-1.3); Monocytes % 6.4 %; Red Blood Count 3.34 M/mcL (4.19-5.50); Red Cell Distribution Width 14.3 % (11.5-14.5); Segmented Neutrophils % 86.4 %
[2019-01-19 06:32] LABS: Platelet Count 94 K/mcL (140-400)
[2019-01-19 06:45] LABS: Calcium 8.1 mg/dL (8.6-10.3); Magnesium 1.8 mg/dL (1.6-2.6); Potassium 3.2 mEq/L (3.5-5.1)
[2019-01-19] MEDS: predniSONE 20 MG TABLET PO SCH (08:19)
[2019-01-19] MEDS: Aspirin 325 MG TABLET PO SCH (08:19)
[2019-01-19] MEDS: Metoprolol XL (24 HR) Succ 25 MG TAB.ER.24H PO SCH (09:28)
--- NOTE | 2019-01-19 10:10 | Cardiology Progress Note ---
Date of Encounter: 01/19/19 Time of Encounter: 09:57 Assessment and Plan (1) Elevated troponin Current Visit: Yes Status: Acute Troponins 0.31, 0.38, 0.35 in setting of PNA and CKD (LORY?). Suspect demand ischemia. Nondiagnostic for ACS. Pt denies chest pain. ECG LBBB--unclear chronicity. TTE resulted--LVEF 45%. Mild cLVH. Global LV systolic dysfunction. Indeterminate diastolic function. Normal RV structure and function. No evidence of phtn. No significant valvular dysfunction. Mildy reduced EF. Hx of CHF (unclear type). Will request records from Dr. Smith for comparison. Given advanced age, CKD, only mildly reduced EF and no chest pain, will not pursue ischemic evaluation at this time. Will sign off. Reconsult PRN. Pt wishes to start following with [place] [facility]. Will coordinate outpt follow-up in 2-3 weeks. (2) LBBB (left bundle branch block) Current Visit: Yes Status: Acute Unclear chronicity. Follows with Dr. Smith outpt. TTE EF 45%, global. Records requested from Dr. Smith for comparison. (3) Atrial fibrillation Current Visit: Yes Status: Chronic Known A-Fib hx. 12 hr tele AVG HR 89, A-Fib. Home meds included Toprol XL 25mg BID, resumed. [id number] (Age, HTN, CHF). High CVA risk. Per pt, on Xarelto in the past. Reports stopped due to bleeding/bruising. Continue ASA only. Aware of increased CVA risk. Qualifiers: Atrial fibrillation type: chronic Qualified Code(s): I48.2 - Chronic atrial fibrillation (4) History of CHF (congestive heart failure) Current Visit: Yes Status: Chronic Hx of CHF, unclear type in the past. TTE EF 45%, mild global dysfunction. Home meds included PO Lasix, BB, ARB. Resumed BB. Creatinine 2.08--ARB and Lasix on hold. BNP 660. Appears euvolemic on exam. Discussion w patient/family: The assessment and plan as outlined above was discussed with the patient and/or family members who expressed understanding and agreement. All questions were answered. Thank you for involving us in the care of your patient. Please call with any questions. I will discuss all the above with Dr. Kimbrough and make changes as necessary. Subjective Principal diagnosis: PNA, elevated troponin Interval history: Pt reports dyspnea and cough continue. Objective Vital Signs, Last 4 Hours Temp Pulse Resp BP Pulse Ox 01/19/19 09:50 16 94 01/19/19 07:50 98.2 F 86 17 120/67 96 Vital Signs Temp Pulse Resp BP Pulse Ox 01/19/19 09:50 16 94 01/19/19 07:50 98.2 F 86 17 120/67 96 01/19/19 05:12 16 92 01/19/19 04:41 97.8 F 97 18 100/62 90 01/19/19 00:30 97.7 F 89 18 109/55 95 01/18/19 22:22 16 94 01/18/19 20:19 97.7 F 75 18 100/60 92 01/18/19 16:08 16 93 01/18/19 15:31 77 16 85/66 92 01/18/19 11:33 97.4 F L 82 14 118/83 98 01/18/19 10:19 16 92 Intake and Output 01/18/19 01/19/19 01/19/19 23:59 07:59 15:59 Intake Total 100 / 100 340 / 340 Output Total 175 / 175 Balance 100 / 100 -175 / -175 340 / 340 Intake: IV Fluids 100 / 100 100 / 100 Zosyn 3.375 GM In 0.9 % Sodium 100 / 100 100 / 100 Chloride (Mini-Bag +) 100 ML @ 25 mls/hr IVPB Q8HR [facility] Rx#: [id number] Oral 240 / 240 Output: Urine 175 / 175 Other: Meal Breakfast Percent of Meal Consumed 50% # Voids 1 Weight 79.1 kg Patient Weight 01/19/19 23:59 Weight 79.1 kg General: Conversant, No Apparent Distress HEENT: Atraumatic, Normocephaly, Mucus Membranes Moist Neck: Normal carotid pulses Cardiac: Other (irregularly irregular rhythm) Lungs: Other (rhonchi, wheezes) Neuro: Alert and responsive, No focal deficits noted Abdomen: Soft, Non-Tender Skin: No rashes noted on visualized skin Musculoskeletal: No Chest Wall Tenderness Extremities: No Clubbing, No Cyanosis, No Edema, Normal Pulses Results 01/19/19 05:35 01/19/19 05:35 Lab Results 01/19/19 01/19/19 05:35 05:35 WBC 6.9 Hgb 10.5 L Hct 32.6 L Plt Count 94 L Sodium 138 Potassium 3.2 L Chloride 102 Carbon Dioxide 27 BUN 62 H Creatinine 2.08 H Glucose 169 H Calcium 8.1 L Magnesium 1.8 Short CBC 01/19/19 Range/Units 05:35 WBC 6.9 (4.3-11.1) K/mcL Hgb 10.5 L (12.9-16.9) g/dL Hct 32.6 L (37.5-50.1) % Plt Count 94 L (140-400) K/mcL Neutrophils # 6.0 (1.6-8.9) K/mcL BMP 01/19/19 Range/Units 05:35 Sodium 138 (136-145) mEq/L Potassium 3.2 L (3.5-5.1) mEq/L Chloride 102 (98-107) mEq/L Carbon Dioxide 27 (23-29) mEq/L BUN 62 H (8-23) mg/dL Creatinine 2.08 H (0.70-1.30) mg/dL Glucose 169 H (70-105) mg/dL Calcium 8.1 L (8.6-10.3) mg/dL Impressions Echocardiogram 01/18/19 03:33 Impressions: LVEF 45%. Normal LV chamber size and function. Mild concentric left ventricular hypertrophy. Mild global left ventricular systolic dysfunction. Atypical septal motion consistent with bundle branch block. Indeterminate diastolic function. Normal right ventricular structure and function. No evidence of pulmonary hypertension. No significant valvular dysfunction. Left Ventricular Wall Motion: Rest Echo Findings The apex, apical inferior, mid inferior, basal inferior, apical anterior, mid anterior, basal anterior, apical septal, mid inferior septal, basal inferior septal, apical lateral, mid anterior lateral, basal anterior lateral, mid anterior septal, mid inferior lateral, basal anterior septal and basal inferior lateral murry were hypokinetic. Findings: Study Quality * Technically adequate exam. ECG Findings * Atrial fibrillation, BBB. Left Ventricle * LVEF 45%. * Normal LV chamber size and function. * Mild concentric left ventricular hypertrophy. * Mild global left ventricular systolic dysfunction. * Atypical septal motion consistent with bundle branch block. * Indeterminate diastolic function. Right Ventricle * Normal right ventricular structure and function. Left Atrium * Mildly dilated left atrium. Right Atrium * Mildly dilated right atrium. Aortic Valve * Mildly calcified aortic valve leaflets. * Trace aortic regurgitation. * No aortic stenosis. Mitral Valve * Mildly thickened mitral valve leaflets. * Trace mitral regurgitation. * No mitral stenosis. Tricuspid Valve * Normal tricuspid valve structure and function. * Trace tricuspid regurgitation. * No evidence of pulmonary hypertension. Pulmonic Valve * Normal pulmonic valve structure and function. * Trace pulmonic regurgitation. Aorta * Normally sized aortic root. Pericardium * The pericardium appears normal. IVC * Normal IVC dimensions and inspiratory collapse. Pulmonary Artery * Normal visualized portions of the main pulmonary artery. Active Medications Albuterol Sulfate (Proventil Neb) 2.5 mg IH Q2H PRN PRN Reason: Shortness Of Breath/Wheezing Stop: 07/20/19 03:34 Albuterol/Ipratropium (Duoneb) 3 ml IH QIDR [facility] Stop: 07/20/19 05:01 Last Admin: 01/19/19 09:50 Dose: 3 ml Aspirin (Aspirin) 325 mg PO DAILY [facility] Stop: 07/20/19 11:01 Last Admin: 01/19/19 08:19 Dose: 325 mg Diphenhydramine HCl (Benadryl) 25 mg PO HS PRN PRN Reason: Insomnia Stop: 07/20/19 21:04 Last Admin: 01/18/19 22:18 Dose: 25 mg Levofloxacin/Dextrose (Levaquin Premix 750mg/150 Ml) 750 mg in 150 mls @ 100 mls/hr IVPB Q48H [facility]; Protocol Stop: 07/21/19 18:01 Piperacillin Sod/Tazobactam (Sod 3.375 gm/ Sodium Chloride) 100 mls @ 25 mls/hr IVPB Q8HR [facility] Stop: 07/20/19 08:01 Last Admin: 01/19/19 08:18 Dose: 25 mls/hr Metoprolol Succinate (Toprol Xl) 25 mg PO BID [facility] Stop: 07/20/19 21:01 Last Admin: 01/19/19 09:28 Dose: 25 mg Naloxone HCl (Narcan) 0.4 mg IVP Q2M PRN PRN Reason: SEE COMMENTS Stop: 07/20/19 03:25 Prednisone (Prednisone) 40 mg PO DAILY [facility] Stop: 07/20/19 09:01 Last Admin: 01/19/19 08:19 Dose: 40 mg Vancomycin HCl (Vancocin) 0 each IVPB RPHPROT PRN PRN Reason: PULSE DOSE Stop: 07/20/19 06:03 - Imaging and Cardiology Echo: report reviewed - EKG Interpretation EKG results cardiology: other (12 hr tele AVG HR 89, A-Fib) Consult Discharge Plan - Plan Referrals: Yari Dukes MD [Primary Care Provider] -
[2019-01-19 14:57] LABS: Adenovirus DETECTED (Not Detect); Bordetella Pertussis Not Detected (Not Detect); Chlamydophila pneumoniae Not Detected (Not Detect); Coronavirus 229E Not Detected (Not Detect); Coronavirus HKU1 Not Detected (Not Detect); Coronavirus NL63 Not Detected (Not Detect); Coronavirus OC43 Not Detected (Not Detect); Human Metapneumovirus Not Detected (Not Detect); Human Rhinovirus/Enterovirus Not Detected (Not Detect); Influenza A Subtype 2009 H1 Not Detected (Not Detect); Influenza A Untypeable Not Detected (Not Detect); Influenza B Not Detected (Not Detect); Mycoplasma pneumoniae Not Detected (Not Detect); Parainfluenza Virus 1 Not Detected (Not Detect); Parainfluenza Virus 2 Not Detected (Not Detect); Parainfluenza Virus 3 Not Detected (Not Detect); Parainfluenza Virus 4 Not Detected (Not Detect); Respiratory Syncytial Virus Not Detected (Not Detect)
--- NOTE | 2019-01-19 15:54 | Internal Med Progress Note ---
Hospitalist Progress Note - Encounter Date of Encounter: 01/19/19 Time of Encounter: 15:52 - Subjective Interval History: Patient seen and examined at bedside. Patient states that he feels slightly better. He feels still short of breath and has a mild cough but this is slowly improving. He did state he had a difficult time sleeping last night. Denies any fever, chills. - Exam Vitals: Temp Pulse Resp BP Pulse Ox 98.2 F 93 16 102/74 100 01/19/19 07:50 01/19/19 15:48 01/19/19 15:48 01/19/19 15:48 01/19/19 15:48 Exam: Gen.: Alert and oriented 3, no acute distress Lungs: Clear to auscultation bilaterally, no rales, rhonchi, wheezes Heart: Regular rate and rhythm, no murmurs, rubs, gallops - Assessment and Plan (1) Pneumonia Current Visit: Yes Status: Acute Assessment and Plan: Chest CT reveals left upper lobe consolidation, given the patient's symptoms if it was related to his pneumonia. Respiratory infection panel positive for adenovirus but I am concerned he has a superimposed bacterial pneumonia. Patient clinically improving, MRSA nasal swab was negative, discontinue vancomycin and Zosyn, continue Levaquin. (2) Acute respiratory failure with hypoxia Current Visit: Yes Status: Resolved Assessment and Plan: Resolved. Secondary to pneumonia, patient is now satting 100% on room air. (3) Adenovirus infection Current Visit: Yes Status: Acute Assessment and Plan: Causing respiratory infection with likely superimposed bacterial pneumonia as above (4) Hypokalemia Current Visit: Yes Status: Acute Assessment and Plan: Asymptomatic. Will replete orally. Magnesium normal. (5) Chronic renal failure Current Visit: Yes Status: Acute Assessment and Plan: Patient is known to daily stage III with creatinine in the low 30s. Creatinine at baseline. Continue monitor renal function. Good urine output. (6) Thrombocytopenia Current Visit: Yes Status: Acute Assessment and Plan: Mild, platelet krystal was 80 yesterday, improved at 94 today. Likely due to i nfection. No evidence of active bleeding. Continue to monitor. (7) LBBB (left bundle branch block) Current Visit: Yes Status: Acute Assessment and Plan: Known to patient. Appreciate cardiology recommendations. No further treatment. Continue beta lashay. We will decrease Toprol-XL to 25 mg daily from 25 mg twice a day given the patient's mild hypotension. (8) DVT prophylaxis Current Visit: Yes Status: Acute Assessment and Plan: Heparin 5000 units subcutaneous twice a day - Time Spent with Patient Total time spent is greater than 50% in coordination of care (as documented) at patient's floor/unit and/or counseling patient: Internal Medicine: Result - Labs CBC & Chem 7: 01/19/19 05:35 01/19/19 05:35 Labs: Short CBC 01/19/19 Range/Units 05:35 WBC 6.9 (4.3-11.1) K/mcL Hgb 10.5 L (12.9-16.9) g/dL Hct 32.6 L (37.5-50.1) % Plt Count 94 L (140-400) K/mcL Neutrophils # 6.0 (1.6-8.9) K/mcL BMP 01/19/19 05:35 Sodium 138 Potassium 3.2 L Chloride 102 Carbon Dioxide 27 BUN 62 H Creatinine 2.08 H Glucose 169 H Calcium 8.1 L - ABG Interpretation ABG results: ABG ABG pH 7.44 pH Units (7.32-7.45) 01/17/19 19:49 ABG pCO2 35 mmHg (35-45) 01/17/19 19:49 ABG pO2 75 mmHg (85-104) L 01/17/19 19:49 ABG O2 Saturation 96 % (95-98) 01/17/19 19:49 PT/INR, D-dimer PT 13.8 Seconds (9.4-12.1) H 01/18/19 04:46 Consult Discharge Plan - Plan Referrals: Yari Dukes MD [Primary Care Provider] - (1) Pneumonia Qualifiers: Pneumonia type: due to unspecified organism Laterality: left Lung location: upper lobe of lung Qualified Code(s): J18.1 - Lobar pneumonia, unspecified organism (5) Chronic renal failure Qualifiers: Chronic kidney disease stage: stage 3 (moderate) Qualified Code(s): N18.3 - Chronic kidney disease, stage 3 (moderate)
--- NOTE | 2019-01-19 17:41 | Electrocardiograph Report ---
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
[2019-01-19] MEDS ORDERED: Levofloxacin 750 MG/150 ML 750 MG/150 ML BAG IVPB SCH (18:00)
[2019-01-19] MEDS: *HR* Heparin 5,000 UNIT/ML VIAL SQ SCH (18:01)
[2019-01-19] MEDS ORDERED: Magic Mouthwash 10 ML UD Cup PO PRN (23:11)
[2019-01-20] MEDS: Ipratropium/Albuterol Neb 3 ML IH SCH ×2 (03:57→10:19)
[2019-01-20] MEDS: *HR* Heparin 5,000 UNIT/ML VIAL SQ SCH (05:25)
[2019-01-20 06:06] LABS: Hemoglobin 11.3 g/dL (12.9-16.9); Immature Granulocytes % 0.9 % (0-4); Lymphocytes # 0.5 K/mcL (0.6-4.6); Lymphocytes % 6.2 %; Mean Corpuscular HGB Conc 32.3 g/dL (31.6-35.5); Mean Corpuscular Hemoglobin 31.1 pg (28.0-33.3); Mean Corpuscular Volume 96.4 fL (83.0-100.0); Mean Platelet Volume 11.3 fL (9.4-12.4); Monocytes # 0.5 K/mcL (0.0-1.3); Monocytes % 6.6 %; Neutrophils # 6.8 K/mcL (1.6-8.9); Platelet Count 113 K/mcL (140-400); Red Blood Count 3.63 M/mcL (4.19-5.50); Red Cell Distribution Width 14.5 % (11.5-14.5); Segmented Neutrophils % 86.3 %
[2019-01-20 06:25] LABS: Calcium 8.8 mg/dL (8.6-10.3); Magnesium 1.9 mg/dL (1.6-2.6); Potassium 3.8 mEq/L (3.5-5.1)
[2019-01-20 06:37] LABS: Platelet Estimate Normal (Normal); Reactive Lymphocytes Present (Not Present)
[2019-01-20 07:37] VITALS: BP 130/86
[2019-01-20] MEDS: Aspirin 325 MG TABLET PO SCH (07:41)
[2019-01-20] MEDS: predniSONE 20 MG TABLET PO SCH (07:41)
[2019-01-20] MEDS ORDERED: Metoprolol XL (24 HR) Succ 25 MG TAB.ER.24H PO SCH (09:00)
--- NOTE | 2019-01-20 14:25 | Discharge Summary ---
- NOTES TO OUTPATIENT PROVIDER Notes to Outpatient Provider: Patient admitted with PNA, had LORY, starting to improve but not back to baseline, I have ordered for patient to have BMP 1 day prior to seeing PCP Orders not resulted at time of discharge: Pending orders 01/17/19 18:12 Culture,Blood [BC] Stat 01/18/19 15:02 Culture,Sputum with Gram Stain [RM] Routine Date of Encounter: 01/20/19 Time of Encounter: 14:22 - Discharge Diagnosis (1) Pneumonia Priority: Primary Status: Acute Qualifiers: Pneumonia type: due to unspecified organism Laterality: left Lung location: upper lobe of lung Qualified Code(s): J18.1 - Lobar pneumonia, unspecified organism (2) Acute respiratory failure with hypoxia Priority: Secondary Status: Resolved (3) Adenovirus infection Priority: Primary Status: Acute (4) Hypokalemia Priority: Secondary Status: Acute (5) Chronic renal failure Priority: Secondary Status: Acute Qualifiers: Chronic kidney disease stage: stage 3 (moderate) Qualified Code(s): N18.3 - Chronic kidney disease, stage 3 (moderate) (6) Thrombocytopenia Priority: Secondary Status: Acute (7) LBBB (left bundle branch block) Priority: Secondary Status: Acute Hospital course: Mr. Oconnor is a 88 year old male with history of hypertension was admitted with cough and shortness of breath. Chest x-ray was found to have pneumonia. Respiratory infection panel showed adenovirus. He is also noted having a candidate which surgery improved at the time of discharge but his kidney function does not return to normal. I did ask him to hold his Lasix. Patient was attempted to qualify for oxygen but did not qualify here in the hospital. Patient will be discharged home in stable condition to complete a course of prednisone and Levaquin. Discharge discussed with: patient, family - Time Spent with Patient Total time spent providing and/or coordinating discharge services: - Discharge Medications Prescriptions: New predniSONE [PredniSONE] 40 mg PO DAILY #3 tablet Continue Omeprazole [PriLOSEC] 40 mg PO DAILY Metoprolol XL (24 HR) Succ [Toprol Xl] 25 mg PO BID Aspirin 325 mg PO DAILY Acetaminophen [Tylenol] 325 mg PO Q6HR PRN PRN Reason: Pain Atorvastatin [Lipitor] 40 mg PO HS Losartan [Cozaar] 50 mg PO DAILY Changed Levofloxacin [Levaquin] 750 mg PO Q48H #3 tablet Discontinued Furosemide [Lasix] 40 mg PO DAILY Home Medications: Acetaminophen [Tylenol] 325 mg PO Q6HR PRN 02/24/17 [History] Aspirin 325 mg PO DAILY 02/24/17 [History] Metoprolol XL (24 HR) Succ [Toprol Xl] 25 mg PO BID 02/24/17 [History] Omeprazole [PriLOSEC] 40 mg PO DAILY 02/24/17 [History] Atorvastatin [Lipitor] 40 mg PO HS 01/17/19 [History] Losartan [Cozaar] 50 mg PO DAILY 01/17/19 [History] Levofloxacin [Levaquin] 750 mg PO Q48H #3 tablet 01/20/19 [Rx] predniSONE [PredniSONE] 40 mg PO DAILY #3 tablet 01/20/19 [Rx] Allergies/Adverse Reactions: Allergy/AdvReac Type Severity Reaction Status Date / Time No Known Allergies Allergy Verified 08/30/17 04:53 Date of admission: 01/18/19 15:44 Primary care physician: Yari Dukes Consults: 01/18/19 03:33 Consult to Nurse Navigator [CONS] Routine Comment: 01/18/19 03:34 Consult to Cardiology [CONS] Routine Comment: Consulting Provider: [facility] [place] Reason for Consult: Elevated troponin Call Completed: No Discharging clinician: Noel Alcocer Anticipated date of discharge: 01/20/19 - Constitutional Vitals: Temp Pulse Resp BP Pulse Ox 98.3 F 60 16 130/86 90 01/20/19 04:22 01/20/19 13:38 01/20/19 10:19 01/20/19 07:36 01/20/19 13:38 General appearance: Present: cooperative, A&O X 3, pleasant, no acute distress, answers questions appropriately Exam: . - Respiratory Respiratory exam: Present: CTAB. Absent: rales, rhonchi, wheezes - Patient Status Disposition: Home, Self-Care Condition: Fair Functional capacity at discharge: uses cane/walker Overall status at discharge: patient is progressing back to baseline - Ambulatory Orders Ambulatory Orders: Basic Metabolic Panel [CHEM] Time Frame: 01/23/19, Facility: [facility] [place], Location: Lab - Discharge Instructions Follow Up With: Yari Dukes MD [Primary Care Provider] - 01/24/19 10:45 am Forms: ED Satisfaction Letter Additional Instructions: Please follow-up with your PCP as scheduled. Please follow-up with cardiology as scheduled. Please take your antibiotic and steroid until complete. Please have your lab checked one day prior to seeing your PCP. Please resume your home medications. Please return for any new or worsening symptoms. - Diet and Activity Activity: ambulate only with your walker, increase activity as tolerated Diet: low salt diet
== END 2019-01-20 16:13 | disposition home or self-care (01) | DRG 193 ==
LOC: EMEROOARM 17:40 → 2NENU 17:40 → SUATTDRO 20:23 → 2NENU 22:43
PROVIDERS: ADMIT Family Medicine; ATTEND Internal Medicine

== ENCOUNTER 2019-02-22 14:29 | Inpatient (IN) ==
--- NOTE | 2019-02-22 14:37 | Emergency Department Note ---
Disposition Clinical Impression: Congestive heart failure Qualifiers: Heart failure type: unspecified Heart failure chronicity: acute on chronic Qualified Code(s): I50.9 - Heart failure, unspecified Disposition: Admitted As Inpatient Condition: Good Instructions: Heart Failure (ED) Referrals: Yari Dukes MD [Primary Care Provider] - Forms: ED Satisfaction Letter Time of Disposition: 16:55 SOB HPI - General Stated Complaint: SOB Time Seen by Provider: 02/22/19 14:36 Source: patient, family Mode of arrival: ambulatory Limitations: no limitations Nursing Notes Reviewed: Yes Vital Signs Reviewed: Yes - History of Present Illness 88-year-old male past medical history of congestive heart failure and atrial fibrillation on aspirin presenting for 2 day history of gradually progressive and worsening shortness of breath. Patient has no other concerns or complaints at this time, states he feels as though he is unable to catch his breath. He does not endorse orthopnea. Pt Subjective Complaint: shortness of breath - Related Data Home Medications Medication Instructions Recorded Confirmed Acetaminophen [Tylenol] 325 mg PO Q6HR PRN 02/24/17 01/17/19 Aspirin 325 mg PO DAILY 02/24/17 01/17/19 Metoprolol XL (24 HR) Succ [Toprol 25 mg PO BID 02/24/17 01/17/19 Xl] Omeprazole [PriLOSEC] 40 mg PO DAILY 02/24/17 01/17/19 Atorvastatin [Lipitor] 40 mg PO HS 01/17/19 01/17/19 Losartan [Cozaar] 50 mg PO DAILY 01/17/19 01/17/19 Previous Rx's Medication Instructions Recorded Levofloxacin [Levaquin] 750 mg PO Q48H #3 tablet 01/20/19 predniSONE [PredniSONE] 40 mg PO DAILY #3 tablet 01/20/19 Allergies Allergy/AdvReac Type Severity Reaction Status Date / Time No Known Allergies Allergy Verified 08/30/17 04:53 Review of Systems: See history of present illness for greater detail Constitutional: Denies: fever, chills Cardiovascular: Denies: chest pain Respiratory: Admits: dyspnea Gastrointestinal: Denies: abdominal pain, nausea, vomiting, diarrhea, constipation, hematemesis, melena, hematochezia Genitourinary: Denies: hematuria Musculoskeletal: Denies: back pain, neck pain Integumentary: Denies: rash Neurological: Denies: headache, weakness, numbness, paresthesias Endocrine: Denies: fatigue Hematological/Lymphatic: Denies: easy bleeding, easy bruising, lymphadenopathy All systems ED: reviewed and negative except as stated. Review of Systems: As Per HPI Past Medical History - Past Medical History Medical history: Reports: arthritis, atrial fibrillation, CHF, hypertension, RA Surgical history: Reports: orthopedic, other (c-spine surgery - February 2017) Psychiatric history: Reports: no psych history - Social History Smoking Status: Never smoker Smokeless Tobacco Status: No Alcohol use: Reports: occasionally Drug use: Reports: none Physical Exam Constitutional: No acute distress, [id number], engaged to conversation, speech is fluid, answers questions appropriately Neuro: GCS 15, no overt focal neurological deficits Head: Atraumatic, normocephalic Eyes: Pupils equal, round and reactive to light, no scleral icterus, no conjunctival injection Neck: Trachea midline without deviation. Anterior neck is supple without swelling. *Chest: Symmetric chest wall rise *Heart: Cardiac rhythm and rate are regular with S1 and S2 , no S3 or S4 appreciated, no murmurs, gallops, rubs, or clicks. *Lungs: Bilateral crackles noted in lung bases with accessory muscle use or prolonged expiratory phase. Abdomen: Abdomen is flat, soft to palpation, normal bowel sounds. No abdominal bruit auscultated. Non-distended, non-rigid, no organomegaly, no ascites appreciated. No pulsatile mass, no tenderness or guarding to palpation in all four quadrants, no rebound Extremities: Normal capillary refill without evidence of pedal edema, joint swelling or erythema. Pulses/motor/sensory intact in all 4 extremities. Psychiatric exam: Patient displays a normal affect and mood for the environment. No overt signs of hallucination. Integumentary: 2+ pitting edema noted bilateral lower extremities. - General Limitations: no limitations General appearance: alert, in distress Course Course Narrative: Patient placed on BiPAP CBC, BMP, chest x-ray EKG/old EKG, BNP ABG, troponin Vital Signs Temperature 97.6 F 02/22/19 14:33 Pulse Rate 88 02/22/19 14:33 Respiratory Rate 16 02/22/19 14:33 Blood Pressure 150/99 02/22/19 14:33 O2 Sat by Pulse Oximetry 100 02/22/19 14:33 Temperature 97.6 F 02/22/19 14:33 Pulse Rate 88 02/22/19 14:33 Respiratory Rate 13 02/22/19 14:55 Blood Pressure 150/99 02/22/19 14:33 O2 Sat by Pulse Oximetry 100 02/22/19 14:55 Oxygen Delivery Oxygen Delivery Room Air Shortness of Breath/Dyspnea - MDM Narrative Medical decision making narrative: Patient troponin elevated but consistent with prior values Patient laboratory and imaging findings consistent with congestive heart failure exacerbation Patient has creatinine consistent with his prior values of chronic renal disease Patient will be admitted to hospitalist medicine service for further evaluation and management of CHF exacerbation. Patient and his family at bedside verbalized understanding and agreement with this plan. - Lab Data Lab results reviewed: Yes I reviewed the patient's lab results. Result diagrams: 02/22/19 15:02 02/22/19 15:02 Lab Results 02/22/19 02/22/19 02/22/19 Range/Units 15:02 15:02 15:02 WBC 6.2 (4.3-11.1) K/mcL RBC 3.16 L (4.19-5.50) M/mcL Hgb 9.8 L (12.9-16.9) g/dL Hct 32.9 L (37.5-50.1) % MCV 104.1 H D (83.0-100.0) fL MCH 31.0 (28.0-33.3) pg MCHC 29.8 L (31.6-35.5) g/dL RDW 18.1 H (11.5-14.5) % Plt Count 113 L (140-400) K/mcL MPV 11.2 (9.4-12.4) fL Immature Gran % 0.6 (0-4) % Seg Neutrophils % 80.2 % Lymphocytes % 8.4 % Monocytes % 10.4 % Eosinophils % 0.2 % Basophils % 0.2 % Neutrophils # 4.9 (1.6-8.9) K/mcL Lymphocytes # 0.5 L (0.6-4.6) K/mcL Monocytes # 0.6 (0.0-1.3) K/mcL Eosinophils # 0.0 (0.0-0.6) K/mcL Basophils # 0.0 (0.0-0.2) K/mcL ABG pH (7.32-7.45) pH Units ABG pCO2 (35-45) mmHg ABG pO2 (85-104) mmHg ABG HCO3 (21-27) mEq/L ABG Total CO2 (20-26) mEq/L ABG O2 Saturation (95-98) % ABG Base Excess (-2 to 3) mEq/L Respiration Rate O2 Delivery Device Inspired O2 (1-15=lpm [id number]=%) PEEP cm H2O Pressure Support cm H2O Sodium 142 (136-145) mEq/L Potassium 4.8 (3.5-5.1) mEq/L Chloride 110 H (98-107) mEq/L Carbon Dioxide 23 (23-29) mEq/L BUN 52 H (8-23) mg/dL Creatinine 1.49 H (0.70-1.30) mg/dL Est GFR ( Amer) 54 L (> 60) Est GFR (Non-Af Amer) 44 L (> 60) BUN/Creatinine Ratio 35 H (6-26) Glucose 139 H (70-105) mg/dL Calculated Osmolality 310 H (280-300) Calcium 9.1 (8.6-10.3) mg/dL Troponin I 0.10 H* (< 0.04) ng/mL B-Natriuretic Peptide 1684 H (Less than 100) pg/mL 02/22/19 Range/Units 15:03 WBC (4.3-11.1) K/mcL RBC (4.19-5.50) M/mcL Hgb (12.9-16.9) g/dL Hct (37.5-50.1) % MCV (83.0-100.0) fL MCH (28.0-33.3) pg MCHC (31.6-35.5) g/dL RDW (11.5-14.5) % Plt Count (140-400) K/mcL MPV (9.4-12.4) fL Immature Gran % (0-4) % Seg Neutrophils % % Lymphocytes % % Monocytes % % Eosinophils % % Basophils % % Neutrophils # (1.6-8.9) K/mcL Lymphocytes # (0.6-4.6) K/mcL Monocytes # (0.0-1.3) K/mcL Eosinophils # (0.0-0.6) K/mcL Basophils # (0.0-0.2) K/mcL ABG pH 7.39 (7.32-7.45) pH Units ABG pCO2 39 (35-45) mmHg ABG pO2 98 (85-104) mmHg ABG HCO3 24 (21-27) mEq/L ABG Total CO2 25 (20-26) mEq/L ABG O2 Saturation 98 (95-98) % ABG Base Excess -1 (-2 to 3) mEq/L Respiration Rate 8 O2 Delivery Device BiPAP Inspired O2 28.0 (1-15=lpm [id number]=%) PEEP 6 cm H2O Pressure Support 12 cm H2O Sodium (136-145) mEq/L Potassium (3.5-5.1) mEq/L Chloride (98-107) mEq/L Carbon Dioxide (23-29) mEq/L BUN (8-23) mg/dL Creatinine (0.70-1.30) mg/dL Est GFR ( Amer) (> 60) Est GFR (Non-Af Amer) (> 60) BUN/Creatinine Ratio (6-26) Glucose (70-105) mg/dL Calculated Osmolality (280-300) Calcium (8.6-10.3) mg/dL Troponin I (< 0.04) ng/mL B-Natriuretic Peptide (Less than 100) pg/mL - Radiology Data Radiology results reviewed: Yes I reviewed the patient's radiology results. Chest X-Ray 02/22/19 15:20 IMPRESSION: 1. Cardiomegaly with vascular congestion and bilateral infiltrates likely representing edema and congestive failure. D/ / Gregory Brito MD / Gregory Brito MD Interpreting Provider: Gregory Brito MD - EKG Data EKG attestation: Yes I reviewed and interpreted this EKG. EKG results narrative: Patient EKG shows atrial fibrillation with a prolonged QT interval heart rate of 96 bpm, QRS duration of 137 ms, QT/QTc interval of 398/503 ms respectively. There are EKG elevations noted in leads V2 and V3 which are isolated to those leads without reciprocal depressions in appear consistent with prior EKG. There are no signs of acute ischemic change. This EKG performed today is generally consistent with prior EKG performed on 01/17/2019.
[2019-02-22 15:05] LABS: ABG Base Excess -1 mEq/L (-2 to 3); ABG HCO3 24 mEq/L (21-27); ABG Oxygen Saturation 98 % (95-98); ABG PCO2 39 mmHg (35-45); ABG PH 7.39 pH Units (7.32-7.45); ABG PO2 98 mmHg (85-104); ABG TCO2 25 mEq/L (20-26); Blood Gas PEEP 6 cm H2O; Blood Gas Pressure Support 12 cm H2O; Blood Gas Respiration Rate 8
--- NOTE | 2019-02-22 15:22 | Emergency Department Note ---
Disposition Clinical Impression: Congestive heart failure Qualifiers: Heart failure type: unspecified Heart failure chronicity: acute on chronic Qualified Code(s): I50.9 - Heart failure, unspecified Disposition: Admitted As Inpatient Condition: Fair Instructions: Heart Failure (ED) Referrals: Yari Dukes MD [Primary Care Provider] - Forms: ED Satisfaction Letter Time of Disposition: 17:09 General Adult HPI - General Chief complaint: ED Shortness of Breath/Dyspnea Stated complaint: SOB Time Seen by Provider: 02/22/19 14:36 Source: patient Limitations: age - History of Present Illness Pain Scale: 0 - Related Data Home Medications Medication Instructions Recorded Confirmed Acetaminophen [Tylenol] 325 mg PO Q6HR PRN 02/24/17 01/17/19 Aspirin 325 mg PO DAILY 02/24/17 01/17/19 Metoprolol XL (24 HR) Succ [Toprol 25 mg PO BID 02/24/17 01/17/19 Xl] Omeprazole [PriLOSEC] 40 mg PO DAILY 02/24/17 01/17/19 Atorvastatin [Lipitor] 40 mg PO HS 01/17/19 01/17/19 Losartan [Cozaar] 50 mg PO DAILY 01/17/19 01/17/19 Previous Rx's Medication Instructions Recorded Levofloxacin [Levaquin] 750 mg PO Q48H #3 tablet 01/20/19 predniSONE [PredniSONE] 40 mg PO DAILY #3 tablet 01/20/19 Allergies Allergy/AdvReac Type Severity Reaction Status Date / Time No Known Allergies Allergy Verified 08/30/17 04:53 Past Medical History - Past Medical History Medical history: Reports: arthritis, atrial fibrillation, CHF, hypertension, RA Surgical history: Reports: orthopedic, other (c-spine surgery - February 2017) Psychiatric history: Reports: no psych history - Social History Smoking Status: Never smoker Smokeless Tobacco Status: No Alcohol use: Reports: occasionally Drug use: Reports: none Physical Exam - General Limitations: age General appearance: alert Course Vital Signs Temperature 97.6 F 02/22/19 14:33 Pulse Rate 88 02/22/19 14:33 Respiratory Rate 16 02/22/19 14:33 Blood Pressure 150/99 02/22/19 14:33 O2 Sat by Pulse Oximetry 100 02/22/19 14:33 Temperature 97.6 F 02/22/19 14:33 Pulse Rate 88 02/22/19 14:33 Respiratory Rate 13 02/22/19 14:55 Blood Pressure 150/99 02/22/19 14:33 O2 Sat by Pulse Oximetry 100 02/22/19 14:55 Oxygen Delivery Oxygen Delivery Room Air Medical Decision Making - Lab Data Result diagrams: 02/22/19 15:02 02/22/19 15:02 Lab Results 02/22/19 02/22/19 02/22/19 Range/Units 15:02 15:02 15:02 WBC 6.2 (4.3-11.1) K/mcL RBC 3.16 L (4.19-5.50) M/mcL Hgb 9.8 L (12.9-16.9) g/dL Hct 32.9 L (37.5-50.1) % MCV 104.1 H D (83.0-100.0) fL MCH 31.0 (28.0-33.3) pg MCHC 29.8 L (31.6-35.5) g/dL RDW 18.1 H (11.5-14.5) % Plt Count 113 L (140-400) K/mcL MPV 11.2 (9.4-12.4) fL Immature Gran % 0.6 (0-4) % Seg Neutrophils % 80.2 % Lymphocytes % 8.4 % Monocytes % 10.4 % Eosinophils % 0.2 % Basophils % 0.2 % Neutrophils # 4.9 (1.6-8.9) K/mcL Lymphocytes # 0.5 L (0.6-4.6) K/mcL Monocytes # 0.6 (0.0-1.3) K/mcL Eosinophils # 0.0 (0.0-0.6) K/mcL Basophils # 0.0 (0.0-0.2) K/mcL ABG pH (7.32-7.45) pH Units ABG pCO2 (35-45) mmHg ABG pO2 (85-104) mmHg ABG HCO3 (21-27) mEq/L ABG Total CO2 (20-26) mEq/L ABG O2 Saturation (95-98) % ABG Base Excess (-2 to 3) mEq/L Respiration Rate O2 Delivery Device Inspired O2 (1-15=lpm [id number]=%) PEEP cm H2O Pressure Support cm H2O Sodium 142 (136-145) mEq/L Potassium 4.8 (3.5-5.1) mEq/L Chloride 110 H (98-107) mEq/L Carbon Dioxide 23 (23-29) mEq/L BUN 52 H (8-23) mg/dL Creatinine 1.49 H (0.70-1.30) mg/dL Est GFR ( Amer) 54 L (> 60) Est GFR (Non-Af Amer) 44 L (> 60) BUN/Creatinine Ratio 35 H (6-26) Glucose 139 H (70-105) mg/dL Calculated Osmolality 310 H (280-300) Calcium 9.1 (8.6-10.3) mg/dL Troponin I 0.10 H* (< 0.04) ng/mL B-Natriuretic Peptide 1684 H (Less than 100) pg/mL 02/22/19 Range/Units 15:03 WBC (4.3-11.1) K/mcL RBC (4.19-5.50) M/mcL Hgb (12.9-16.9) g/dL Hct (37.5-50.1) % MCV (83.0-100.0) fL MCH (28.0-33.3) pg MCHC (31.6-35.5) g/dL RDW (11.5-14.5) % Plt Count (140-400) K/mcL MPV (9.4-12.4) fL Immature Gran % (0-4) % Seg Neutrophils % % Lymphocytes % % Monocytes % % Eosinophils % % Basophils % % Neutrophils # (1.6-8.9) K/mcL Lymphocytes # (0.6-4.6) K/mcL Monocytes # (0.0-1.3) K/mcL Eosinophils # (0.0-0.6) K/mcL Basophils # (0.0-0.2) K/mcL ABG pH 7.39 (7.32-7.45) pH Units ABG pCO2 39 (35-45) mmHg ABG pO2 98 (85-104) mmHg ABG HCO3 24 (21-27) mEq/L ABG Total CO2 25 (20-26) mEq/L ABG O2 Saturation 98 (95-98) % ABG Base Excess -1 (-2 to 3) mEq/L Respiration Rate 8 O2 Delivery Device BiPAP Inspired O2 28.0 (1-15=lpm [id number]=%) PEEP 6 cm H2O Pressure Support 12 cm H2O Sodium (136-145) mEq/L Potassium (3.5-5.1) mEq/L Chloride (98-107) mEq/L Carbon Dioxide (23-29) mEq/L BUN (8-23) mg/dL Creatinine (0.70-1.30) mg/dL Est GFR ( Amer) (> 60) Est GFR (Non-Af Amer) (> 60) BUN/Creatinine Ratio (6-26) Glucose (70-105) mg/dL Calculated Osmolality (280-300) Calcium (8.6-10.3) mg/dL Troponin I (< 0.04) ng/mL B-Natriuretic Peptide (Less than 100) pg/mL Critical Care Time Critical Care Time: Yes Total Critical Care Time: 35 Attestation: Critical care performed: Time is exclusive of separately billable procedures. Time includes: direct patient care, patient reassessment, coordination of patient care, interpretation of data (laboratory data, radiology data, and respiratory data), review of patient's medical records, medical consultation and documentation of patient care. Procedures included in critical care time: Procedures excluded from critical care time: Attestation Statement - Attestation Attestation: I examined this patient and my medical decision-making was reviewed with the Resident Physician. I agree with the documented findings, disposition and treatment plan as described except to the extent set forth below. Patient presents to the emergency department a chief complaint of shortness of breath. Leg swelling. Onset a few days ago. He is brought in by his daughter. She states she was out of town when she came back she thought he had decompensated. No fever. On examination he has 3+ pitting edema in his lower extremities. Tolerating BiPAP on my evaluation. Clear lungs. Plan. Cardiac workup. Likely admission. BNP and troponin elevated. Troponin is chronically elevated. He still on the BiPAP at this time. Dr. Medrano accepts for admission. Chest X-Ray 02/22/19 15:20 IMPRESSION: 1. Cardiomegaly with vascular congestion and bilateral infiltrates likely representing edema and congestive failure. D/ / Gregory Brito MD / Gregory Brito MD Interpreting Provider: Gregory Brito MD
[2019-02-22 15:31] LABS: Basophils % 0.2 %; Eosinophils % 0.2 %; Hematocrit 32.9 % (37.5-50.1); Hemoglobin 9.8 g/dL (12.9-16.9); Immature Granulocytes % 0.6 % (0-4); Lymphocytes # 0.5 K/mcL (0.6-4.6); Lymphocytes % 8.4 %; Mean Corpuscular HGB Conc 29.8 g/dL (31.6-35.5); Mean Platelet Volume 11.2 fL (9.4-12.4); Monocytes # 0.6 K/mcL (0.0-1.3); Monocytes % 10.4 %; Neutrophils # 4.9 K/mcL (1.6-8.9); Platelet Count 113 K/mcL (140-400); Red Blood Count 3.16 M/mcL (4.19-5.50); Red Cell Distribution Width 18.1 % (11.5-14.5); Segmented Neutrophils % 80.2 %
[2019-02-22 15:39] LABS: Mean Corpuscular Volume 104.1 fL (83.0-100.0)
[2019-02-22 15:43] LABS: Calcium 9.1 mg/dL (8.6-10.3); Potassium 4.8 mEq/L (3.5-5.1)
[2019-02-22 15:45] LABS: Troponin I 0.1 ng/mL (< 0.04)
[2019-02-22] MEDS ORDERED: Aspirin 325 MG TABLET PO ONE (17:08)
[2019-02-22] MEDS ORDERED: Furosemide 40 MG/4 ML VIAL IVP ONE (17:08)
[2019-02-22] MEDS ORDERED: Naloxone 0.4 MG/ML INJ IVP PRN (18:10)
[2019-02-22] MEDS ORDERED: Acetaminophen 325 MG TABLET PO PRN (18:11)
--- NOTE | 2019-02-22 19:50 | Internal Med History&Physical ---
Date of Encounter: 02/22/19 Time of Encounter: 19:00 Internal Medicine - H&P: HPI Chief complaint: Shortness of breath for a couple of days duration History of present illness: Mr. Oconnor is a 88 year old male with pmh of combined systolic and diastolic CHF, atrial fibrillation presenting with complaints of shortness of breath for about 2 weeks. Patient says he has been getting increasingly short of breath one exertion and has problems laying flat in bed. HE was recently discharged from the hospital for acute CHF. He admits to compliance with diet and salt restri ction. He says his primary care stopped his lasix about 1 month ago due to frequent urination at bedtime which has been affecting his sleep. HE denies any wheezing , coughing or chest pain or any other acute symptoms. In the ER, he was noted to have pulmonary vascular congestion and he was started on IV lasix and he is being admitted for further management Past Med Surg Social Fam HX - Past Medical History Medical history: arthritis, atrial fibrillation, CHF, hypertension, RA Additional medical history: PAF Psychiatric history: no psych history - Past Surgical History Surgical History: orthopedic, other (c-spine surgery - February 2017) Additional surgical history: CARPAL TUNNEL RELEASE. I&D OF HIP - Social History Smoking Status: Never smoker Smokeless Tobacco Status: No Alcohol use: occasionally Drug use: none - Family History Son Hx Family Cardiac Disorders: Yes (a fib, stents, HTN) Internal Medicine - H&P: Meds Acetaminophen [Tylenol] 325 mg PO Q6HR PRN 02/24/17 [History] Aspirin 325 mg PO DAILY 02/24/17 [History] Metoprolol XL (24 HR) Succ [Toprol Xl] 25 mg PO BID 02/24/17 [History] Omeprazole [PriLOSEC] 40 mg PO DAILY 02/24/17 [History] Atorvastatin [Lipitor] 40 mg PO HS 01/17/19 [History] Losartan [Cozaar] 50 mg PO DAILY 01/17/19 [History] Levofloxacin [Levaquin] 750 mg PO Q48H #3 tablet 01/20/19 [Rx] predniSONE [PredniSONE] 40 mg PO DAILY #3 tablet 01/20/19 [Rx] Dexamethasone [Decadron] 4 mg PO DAILY 02/22/19 [History] Terazosin HCl 2 mg PO 02/22/19 [History] Allergy/AdvReac Type Severity Reaction Status Date / Time No Known Allergies Allergy Verified 08/30/17 04:53 All Systems PM: A 10-system review of systems was performed and is negative for pertinent findings except as documented above in the HPI. - Constitutional Constitutional: no chills, no fever(s), no night sweats - EENT Eyes: no change in vision, no discharge, no pain, no photophobia Ears: no ear discharge, no ear pain, no tinnitus Nose, mouth and throat: no dysphagia, no nasal discharge, no neck pain, no sore throat - Cardiovascular Cardiovascular ROS IM: dyspnea, dyspnea on exertion, no chest pain, no diaphoresis, no lightheadedness, no palpitations, no syncope - Respiratory Respiratory: dyspnea, no cough, no wheezing, no excessive phlegm production - Gastrointestinal Gastrointestinal: no abdominal pain, no diarrhea, no hematemesis, no hematochezia, no melena, no nausea, no vomiting - Musculoskeletal Musculoskeletal ROS IM: no numbness, no tingling - Integumentary Integumentary IM: no rash, no unusual bruising - Neurological Neurological ROS: no confusion, no convulsions, no focal weakness, no numbness, no tingling, no tremor(s) - Hematologic/Lymphatic Hematologic/Lymphatic: no easy bruising - Constitutional Vitals: Temp Pulse Resp BP Pulse Ox 97.6 F 85 13 140/97 100 02/22/19 14:33 02/22/19 17:00 02/22/19 14:55 02/22/19 17:00 02/22/19 17:00 General appearance: Present: A&O X 3 Exam: NAD - Head Head exam: Present: atraumatic, normocephalic - Eye Eye exam: Present: PERRL, conjuntiva pink, sclera anicteric Pupils: Present: PERRL - Neck Neck exam general surgery: Present: supple, trachea midline. Absent: lymphadenopathy - Respiratory Respiratory exam: Present: rales. Absent: accessory muscle use, rhonchi, wheezes - Cardiovascular Cardiovascular exam: Present: RRR, +S1, +S2. Absent: diastolic murmur, gallop, rubs, systolic murmur - GI/Abdominal GI/Abdominal exam: Present: normal bowel sounds, soft, no peritoneal signs. Absent: distended, tenderness - Extremities Exam Extremities exam: Present: pedal edema, warm, radial pulses palpable and symmetrical. Absent: calf tenderness, cyanotic - Neurological Exam Neurological exam: Present: CN II-XII intact, oriented X3, no focal deficits. Absent: pronater drift, facial droop, speech deficit - Skin Skin exam: Present: dry, intact Internal Med - H&P Results - Labs CBC & Chem 7: 02/22/19 15:02 02/22/19 15:02 Labs: Short CBC 02/22/19 Range/Units 15:02 WBC 6.2 (4.3-11.1) K/mcL Hgb 9.8 L (12.9-16.9) g/dL Hct 32.9 L (37.5-50.1) % Plt Count 113 L (140-400) K/mcL Neutrophils # 4.9 (1.6-8.9) K/mcL BMP 02/22/19 15:02 Sodium 142 Potassium 4.8 Chloride 110 H Carbon Dioxide 23 BUN 52 H Creatinine 1.49 H Glucose 139 H Calcium 9.1 Cardiac Enzymes 02/22/19 Range/Units 15:02 Troponin I 0.10 H* (< 0.04) ng/mL - ABG Interpretation ABG results: 02/22/19 15:03 ABG pH 7.39 ABG pCO2 39 ABG pO2 98 ABG HCO3 24 ABG Total CO2 25 ABG O2 Saturation 98 ABG Base Excess -1 - Impressions ITS Impressions Chest X-Ray 02/22/19 15:20 IMPRESSION: 1. Cardiomegaly with vascular congestion and bilateral infiltrates likely representing edema and congestive failure. D/ / Gregory Brito MD / Gregory Brito MD Interpreting Provider: Gregory Brito MD - Assessment and Plan (1) Combined systolic and diastolic congestive heart failure Current Visit: Yes Status: Acute Assessment and plan: Pt comes in with shortness of breath and pulmonary vascular congestion Was taken off lasix a month ago Will restart lasix BID, strict ins and outs, cardiac diet Qualifiers: Qualified Code(s): I50.40 - Unspecified combined systolic (congestive) and diastolic (congestive) heart failure (2) Atrial fibrillation Current Visit: Yes Status: Chronic Assessment and plan: Continue metoprolol and aspirin. Was on xarelto previously which was discontinued due to bleeding Qualifiers: Atrial fibrillation type: chronic Qualified Code(s): I48.2 - Chronic atrial fibrillation (3) Hypertension Current Visit: Yes Status: Acute Assessment and plan: Resume home meds Qualifiers: Qualified Code(s): I10 - Essential (primary) hypertension (4) DVT prophylaxis Current Visit: Yes Status: Acute Assessment and plan: Heparin sc - Time Spent With Patient Total time spent is greater than 50% in coordination of care (as documented) at patient's floor/unit and/or counseling patient:
[2019-02-22] MEDS: Furosemide 40 MG/4 ML VIAL IVP SCH (21:00)
[2019-02-22] MEDS: Metoprolol XL (24 HR) Succ 50 MG TAB.ER.24H PO SCH (21:01)
[2019-02-23 02:58] LABS: Basophils % 0.2 %; Eosinophils % 0.5 %; Hematocrit 32.7 % (37.5-50.1); Hemoglobin 9.8 g/dL (12.9-16.9); Immature Granulocytes % 0.6 % (0-4); Lymphocytes # 0.6 K/mcL (0.6-4.6); Lymphocytes % 9.6 %; Mean Corpuscular Hemoglobin 31.3 pg (28.0-33.3); Mean Corpuscular Volume 104.5 fL (83.0-100.0); Mean Platelet Volume 11.4 fL (9.4-12.4); Monocytes # 0.7 K/mcL (0.0-1.3); Monocytes % 10.4 %; Platelet Count 127 K/mcL (140-400); Red Blood Count 3.13 M/mcL (4.19-5.50); Red Cell Distribution Width 18.3 % (11.5-14.5); Segmented Neutrophils % 78.7 %
[2019-02-23 03:21] LABS: Calcium 8.9 mg/dL (8.6-10.3); Magnesium 1.8 mg/dL (1.6-2.6); Phosphorous 2.9 mg/dL (2.7-4.5); Potassium 4.8 mEq/L (3.5-5.1)
--- NOTE | 2019-02-23 07:33 | Internal Med Progress Note ---
Hospitalist Progress Note - Encounter Date of Encounter: 02/23/19 Time of Encounter: 07:30 - Subjective Interval History: Admitted for shortness of breath due to CHF exacerbation. Improved this am - Exam Vitals: Temp Pulse Resp BP Pulse Ox 97.9 F 84 19 145/89 99 02/23/19 03:54 02/23/19 03:54 02/23/19 04:00 02/23/19 03:54 02/23/19 04:00 Exam: General appearance: Present: A&O X 3, no acute distress Head exam: Present: normocephalic Respiratory exam: Present: CTAB. Absent: accessory muscle use, rales, rhonchi, wheezes Cardiovascular exam: Present: RRR, +S1, +S2. Absent: diastolic murmur, gallop, rubs, systolic murmur GI/Abdominal exam: Soft, NT, ND, +BS Extremities exam: Bilateral pitting edema Neurological exam: Present: alert, oriented X3, no focal deficits. Absent: altered - Assessment and Plan (1) Combined systolic and diastolic congestive heart failure Current Visit: Yes Status: Acute Assessment and Plan: Pt comes in with shortness of breath and pulmonary vascular congestion Was taken off lasix a month ago Will restart lasix BID, strict ins and outs, cardiac diet Added metolazone to regimen for improved diuresis (2) Atrial fibrillation Current Visit: Yes Status: Chronic Assessment and Plan: Continue metoprolol and aspirin. Was on xarelto previously which was discontinued due to bleeding (3) Hypertension Current Visit: Yes Status: Acute Assessment and Plan: Resume home meds (4) DVT prophylaxis Current Visit: Yes Status: Acute Assessment and Plan: Heparin sc - Time Spent with Patient Total time spent is greater than 50% in coordination of care (as documented) at patient's floor/unit and/or counseling patient: Internal Medicine: Result - Labs CBC & Chem 7: 02/23/19 01:47 02/23/19 01:47 Labs: Short CBC 02/22/19 02/23/19 Range/Units 15:02 01:47 WBC 6.2 6.4 (4.3-11.1) K/mcL Hgb 9.8 L 9.8 L (12.9-16.9) g/dL Hct 32.9 L 32.7 L (37.5-50.1) % Plt Count 113 L 127 L (140-400) K/mcL Neutrophils # 4.9 5.0 (1.6-8.9) K/mcL BMP 02/22/19 02/23/19 15:02 01:47 Sodium 142 142 Potassium 4.8 4.8 Chloride 110 H 109 H Carbon Dioxide 23 28 BUN 52 H 50 H Creatinine 1.49 H 1.50 H Glucose 139 H 113 H Calcium 9.1 8.9 Cardiac Enzymes 02/22/19 02/22/19 02/23/19 Range/Units 15:02 21:13 01:47 Troponin I 0.10 H* 0.10 H* 0.11 H* (< 0.04) ng/mL - ABG Interpretation ABG results: ABG ABG pH 7.39 pH Units (7.32-7.45) 02/22/19 15:03 ABG pCO2 39 mmHg (35-45) 02/22/19 15:03 ABG pO2 98 mmHg (85-104) 02/22/19 15:03 ABG O2 Saturation 98 % (95-98) 02/22/19 15:03 - Impressions Impressions Chest X-Ray 02/22/19 15:20 IMPRESSION: 1. Cardiomegaly with vascular congestion and bilateral infiltrates likely representing edema and congestive failure. D/ / Gregory Brito MD / Gregory Brito MD Interpreting Provider: Gregory Brito MD Consult Discharge Plan - Plan Referrals: Yari Dukes MD [Primary Care Provider] - (1) Combined systolic and diastolic congestive heart failure Qualifiers: Qualified Code(s): I50.40 - Unspecified combined systolic (congestive) and diastolic (congestive) heart failure (2) Atrial fibrillation Qualifiers: Atrial fibrillation type: chronic Qualified Code(s): I48.2 - Chronic atrial fibrillation (3) Hypertension Qualifiers: Qualified Code(s): I10 - Essential (primary) hypertension
--- NOTE | 2019-02-23 09:44 | Electrocardiograph Report ---
[address] [place] [address] Test Date: 2019-02-22 Pat Name: Dalton Oconnor Department: [id number] Room: 2A22 Gender: M [employer]: : 1930 Requested By: Dallas Dunlap Order Number: [id number] Reading MD: Susan Mendez Measurements Intervals [place] Rate: 96 P: [place]: QRS: 128 QRSD: 137 T: -39 QT: 398 QTc: 503 Interpretive Statements Atrial fibrillation LBBB Nonspecific T abnormalities, lateral leads Electronically Signed On 02-23-2019 9:42:35 EDT by Susan Mendez
[2019-02-23] MEDS: Metoprolol XL (24 HR) Succ 50 MG TAB.ER.24H PO SCH ×2 (10:16→20:16)
[2019-02-23] MEDS: Aspirin 325 MG TABLET PO SCH (10:16)
[2019-02-23] MEDS: Furosemide 40 MG/4 ML VIAL IVP SCH ×2 (10:18→16:38)
[2019-02-23] MEDS: metOLazone 5 MG TABLET PO SCH (13:20)
[2019-02-23] MEDS: *HR* Heparin 5,000 UNIT/ML VIAL SQ SCH (16:38)
[2019-02-24] MEDS: *HR* Heparin 5,000 UNIT/ML VIAL SQ SCH ×2 (05:33→16:40)
[2019-02-24 05:46] LABS: Basophils % 0.2 %; Hematocrit 33.3 % (37.5-50.1); Hemoglobin 10.1 g/dL (12.9-16.9); Immature Granulocytes % 0.7 % (0-4); Lymphocytes # 0.5 K/mcL (0.6-4.6); Lymphocytes % 10.7 %; Mean Corpuscular HGB Conc 30.3 g/dL (31.6-35.5); Mean Corpuscular Hemoglobin 31.4 pg (28.0-33.3); Mean Corpuscular Volume 103.4 fL (83.0-100.0); Mean Platelet Volume 10.9 fL (9.4-12.4); Monocytes # 0.5 K/mcL (0.0-1.3); Monocytes % 10.3 %; Neutrophils # 3.4 K/mcL (1.6-8.9); Platelet Count 113 K/mcL (140-400); Red Blood Count 3.22 M/mcL (4.19-5.50); Red Cell Distribution Width 17.8 % (11.5-14.5); Segmented Neutrophils % 78.1 %
[2019-02-24 06:04] LABS: Magnesium 1.6 mg/dL (1.6-2.6); Phosphorous 3.1 mg/dL (2.7-4.5); Potassium 5.3 mEq/L (3.5-5.1)
[2019-02-24] MEDS: Furosemide 40 MG/4 ML VIAL IVP SCH ×2 (09:27→16:40)
[2019-02-24] MEDS: Metoprolol XL (24 HR) Succ 50 MG TAB.ER.24H PO SCH ×2 (09:28→21:30)
[2019-02-24] MEDS: metOLazone 5 MG TABLET PO SCH (09:28)
[2019-02-24] MEDS: Aspirin 325 MG TABLET PO SCH (09:28)
--- NOTE | 2019-02-24 12:02 | Internal Med Progress Note ---
Hospitalist Progress Note - Encounter Date of Encounter: 02/24/19 Time of Encounter: 09:00 - Subjective Interval History: Admitted for chf exacerbation. Improving - Exam Vitals: Temp Pulse Resp BP Pulse Ox 97.7 F 86 16 134/77 96 02/24/19 11:36 02/24/19 11:36 02/24/19 11:36 02/24/19 11:36 02/24/19 11:36 Exam: General appearance: Present: A&O X 3, no acute distress Head exam: Present: normocephalic Respiratory exam: Present: CTAB. Absent: accessory muscle use, rales, rhonchi, wheezes Cardiovascular exam: Present: RRR, +S1, +S2. Absent: diastolic murmur, gallop, rubs, systolic murmur GI/Abdominal exam: Soft, NT, ND, +BS Extremities exam: Bilateral pitting edema Neurological exam: Present: alert, oriented X3, no focal deficits. Absent: altered - Assessment and Plan (1) Combined systolic and diastolic congestive heart failure Current Visit: Yes Status: Acute Assessment and Plan: Pt comes in with shortness of breath and pulmonary vascular congestion. Was taken off lasix a month ago Will restart lasix BID, strict ins and outs, cardiac diet Added metolazone to regimen for improved diuresis Patient diuresing well. Still has some pedal edema today. Plan for discharge to rehab in am if stable (2) Atrial fibrillation Current Visit: Yes Status: Chronic Assessment and Plan: Continue metoprolol and aspirin. Was on xarelto previously which was discontinued due to bleeding Rate controlled (3) Hypertension Current Visit: Yes Status: Acute Assessment and Plan: Resume home meds (4) DVT prophylaxis Current Visit: Yes Status: Acute Assessment and Plan: Heparin sc - Time Spent with Patient Total time spent is greater than 50% in coordination of care (as documented) at patient's floor/unit and/or counseling patient: Internal Medicine: Result - Labs CBC & Chem 7: 02/24/19 05:06 02/24/19 05:06 Labs: Short CBC 02/24/19 Range/Units 05:06 WBC 4.4 (4.3-11.1) K/mcL Hgb 10.1 L (12.9-16.9) g/dL Hct 33.3 L (37.5-50.1) % Plt Count 113 L (140-400) K/mcL Neutrophils # 3.4 (1.6-8.9) K/mcL BMP 02/24/19 05:06 Sodium 141 Potassium 5.3 H Chloride 103 Carbon Dioxide 31 H BUN 48 H Creatinine 1.51 H Glucose 142 H Calcium 9.0 - ABG Interpretation ABG results: ABG ABG pH 7.39 pH Units (7.32-7.45) 02/22/19 15:03 ABG pCO2 39 mmHg (35-45) 02/22/19 15:03 ABG pO2 98 mmHg (85-104) 02/22/19 15:03 ABG O2 Saturation 98 % (95-98) 02/22/19 15:03 Consult Discharge Plan - Plan Referrals: Yari Dukes MD [Primary Care Provider] - (1) Combined systolic and diastolic congestive heart failure Qualifiers: Qualified Code(s): I50.40 - Unspecified combined systolic (congestive) and diastolic (congestive) heart failure (2) Atrial fibrillation Qualifiers: Atrial fibrillation type: chronic Qualified Code(s): I48.2 - Chronic atrial fibrillation (3) Hypertension Qualifiers: Qualified Code(s): I10 - Essential (primary) hypertension
[2019-02-25 06:05] LABS: Hematocrit 32.8 % (37.5-50.1); Immature Granulocytes % 0.8 % (0-4); Lymphocytes # 0.5 K/mcL (0.6-4.6); Lymphocytes % 8.1 %; Mean Corpuscular HGB Conc 30.5 g/dL (31.6-35.5); Mean Corpuscular Hemoglobin 30.5 pg (28.0-33.3); Mean Platelet Volume 10.4 fL (9.4-12.4); Monocytes # 0.6 K/mcL (0.0-1.3); Neutrophils # 5.2 K/mcL (1.6-8.9); Platelet Count 122 K/mcL (140-400); Red Blood Count 3.28 M/mcL (4.19-5.50); Red Cell Distribution Width 17.5 % (11.5-14.5); Segmented Neutrophils % 82.1 %
[2019-02-25] MEDS: *HR* Heparin 5,000 UNIT/ML VIAL SQ SCH (06:10)
[2019-02-25 06:31] LABS: Calcium 8.9 mg/dL (8.6-10.3); Magnesium 1.4 mg/dL (1.6-2.6); Potassium 3.8 mEq/L (3.5-5.1)
--- NOTE | 2019-02-25 07:19 | Discharge Summary ---
Date of Encounter: 02/25/19 Time of Encounter: 07:00 - Discharge Diagnosis (1) Combined systolic and diastolic congestive heart failure Priority: Primary Status: Acute Assessment and Plan: 88 year old male with pmh of combined systolic and diastolic CHF, atrial fibrillation presenting with complaints of shortness of breath for about 2 weeks. Patient says he has been getting increasingly short of breath one exertion and has problems laying flat in bed. HE was recently discharged from the hospital for acute CHF. He admits to compliance with diet and salt restriction. He says his primary care stopped his lasix about 1 month ago due to frequent urination at bedtime which has been affecting his sleep. HE denies any wheezing , coughing or chest pain or any other acute symptoms. He was assessed with acute worsening of chronic combined systolic and diastolic CHF. He came in with shortness of breath and pulmonary vascular congestion. Was taken off lasix a month ago. He was restarted on lasix BID and added metolazone to regimen for improved diuresis. He diuresed well and lost about 16 pounds on this regimen. He was discharged to an ECF on lasix BID. 35 minutes was spent discharging this patient Qualifiers: Qualified Code(s): I50.40 - Unspecified combined systolic (congestive) and diastolic (congestive) heart failure (2) Atrial fibrillation Priority: Primary Status: Chronic Qualifiers: Atrial fibrillation type: chronic Qualified Code(s): I48.2 - Chronic atrial fibrillation (3) Hypertension Priority: Primary Status: Acute Qualifiers: Qualified Code(s): I10 - Essential (primary) hypertension (4) DVT prophylaxis Priority: Primary Status: Acute Hospital course: Mr. Oconnor is a 88 year old male - Time Spent with Patient Total time spent providing and/or coordinating discharge services: - Discharge Medications Prescriptions: New Furosemide [Lasix] 40 mg PO BID #60 tab Continued Omeprazole [PriLOSEC] 40 mg PO DAILY Metoprolol XL (24 HR) Succ [Toprol Xl] 25 mg PO BID Aspirin 325 mg PO DAILY Atorvastatin [Lipitor] 40 mg PO HS Dexamethasone [Decadron] 4 mg PO DAILY Terazosin HCl 2 mg PO HS Home Medications: Aspirin 325 mg PO DAILY 02/24/17 [History] Metoprolol XL (24 HR) Succ [Toprol Xl] 25 mg PO BID 02/24/17 [History] Omeprazole [PriLOSEC] 40 mg PO DAILY 02/24/17 [History] Atorvastatin [Lipitor] 40 mg PO HS 01/17/19 [History] Dexamethasone [Decadron] 4 mg PO DAILY 02/22/19 [History] Terazosin HCl 2 mg PO HS 02/22/19 [History] Furosemide [Lasix] 40 mg PO BID #60 tab 02/25/19 [Rx] Allergies/Adverse Reactions: Allergy/AdvReac Type Severity Reaction Status Date / Time carvedilol AdvReac Gastrointestinal Verified 02/23/19 14:33 Upset rivaroxaban [From Xarelto] AdvReac See Verified 02/23/19 14:33 Comments Date of admission: 02/24/19 15:20 Primary care physician: Yari Dueks Consults: 02/23/19 07:34 Consult to Nurse Navigator [CONS] Routine Comment: chf 02/23/19 12:05 Consult to Physical Therapy [CONS] Routine Comment: Evaluate, develop and implement POC Reason for Consult: weakness Does patient have active BEDREST order?: No Is patient medically & hemodynamically stable?: Yes Patient assessed for mobility or mobilized this visit?: No 02/23/19 12:06 Consult to [facility]cel[facility] [employer]am[employer] [CONS] Routine Reason for SW Consult: home health request - Constitutional Vitals: Temp Pulse Resp BP Pulse Ox 97.8 F 78 17 146/68 97 02/25/19 04:08 02/25/19 04:08 02/25/19 04:08 02/25/19 04:08 02/25/19 04:08 General appearance: Present: A&O X 3 Exam: General appearance: Present: A&O X 3, no acute distress Head exam: Present: normocephalic Respiratory exam: Present: CTAB. Absent: accessory muscle use, rales, rhonchi, wheezes Cardiovascular exam: Present: RRR, +S1, +S2. Absent: diastolic murmur, gallop, rubs, systolic murmur GI/Abdominal exam: Soft, NT, ND, +BS Extremities exam: edema improved Neurological exam: Present: alert, oriented X3, no focal deficits. Absent: altered - Patient Status Disposition: Transfer Inpatient Rehab Fac Condition: Fair - Discharge Instructions Follow Up With: Yari Dukes MD [Primary Care Provider] - (D/C to [facility])
--- NOTE | 2019-02-25 08:45 | Physician Discharge Referral ---
- Diagnosis (1) Combined systolic and diastolic congestive heart failure Priority: Primary Status: Acute (2) Atrial fibrillation Priority: Primary Status: Chronic (3) Hypertension Priority: Primary Status: Acute (4) DVT prophylaxis Priority: Primary Status: Acute - Transfer Medications Prescriptions: Furosemide [Lasix] 40 mg PO BID #60 tab Home Medications: Aspirin 325 mg PO DAILY 02/24/17 [History] Metoprolol XL (24 HR) Succ [Toprol Xl] 25 mg PO BID 02/24/17 [History] Omeprazole [PriLOSEC] 40 mg PO DAILY 02/24/17 [History] Atorvastatin [Lipitor] 40 mg PO HS 01/17/19 [History] Dexamethasone [Decadron] 4 mg PO DAILY 02/22/19 [History] Terazosin HCl 2 mg PO HS 02/22/19 [History] Furosemide [Lasix] 40 mg PO BID #60 tab 02/25/19 [Rx] Allergies/Adverse Reactions: Allergy/AdvReac Type Severity Reaction Status Date / Time carvedilol AdvReac Gastrointestinal Verified 02/23/19 14:33 Upset rivaroxaban [From Xarelto] AdvReac See Verified 02/23/19 14:33 Comments - Respiratory Orders Smoking Cessation: Smoking cessation has been advised. For more information, call the [place] Tobacco Quit Line at 6-240-LKIBNOW. - Mobility Orders Ambulate - Diet Orders Cardiac CERTIFICATION: I certify that the transfer of the above named patient to an Extended Care Facility is necessary for the continuing treatment of the diagnosis listed. The above information is true and accurate reflection of patient's current condition. Confidential - Redisclosure prohibited without a patient's written consent.
[2019-02-25 09:13] VITALS: BP 134/51
[2019-02-25] MEDS: Furosemide 40 MG/4 ML VIAL IVP SCH (09:15)
[2019-02-25] MEDS: metOLazone 5 MG TABLET PO SCH (09:15)
[2019-02-25] MEDS: Metoprolol XL (24 HR) Succ 50 MG TAB.ER.24H PO SCH (09:15)
[2019-02-25] MEDS: Aspirin 325 MG TABLET PO SCH (09:15)
== END 2019-02-25 11:12 | DRG 293 ==
LOC: 2ANU 14:29 → EMEROOARM 14:29 → 2ANU 19:35
PROVIDERS: ADMIT Internal Medicine Nephrology; ATTEND Internal Medicine Nephrology

== ENCOUNTER 2019-03-24 16:27 | Observation (INO) ==
--- NOTE | 2019-03-24 17:28 | Emergency Department Note ---
Disposition Clinical Impression: HCAP (healthcare-associated pneumonia) CKD (chronic kidney disease) Qualifiers: Chronic kidney disease stage: unspecified stage Qualified Code(s): N18.9 - Chronic kidney disease, unspecified Heart failure Qualifiers: Heart failure type: unspecified Heart failure chronicity: chronic Qualified Code(s): I50.9 - Heart failure, unspecified Disposition: Admitted As Inpatient Condition: Fair Referrals: Yari Dukes MD [Primary Care Provider] - Forms: ED Satisfaction Letter Time of Disposition: 19:35 General Adult HPI - General Chief complaint: ED Shortness of Breath/Dyspnea Stated complaint: CARLOS Congestion Time Seen by Provider: 03/24/19 17:02 Source: patient, family Limitations: no limitations Nursing Notes Reviewed: Yes Vital Signs Reviewed: Yes - History of Present Illness HPI Narrative: 88-year-old male who presents emergency Department with complaints of shortness breath. Patient was recently admitted for CHF exacerbation and sent to a rehabilitation facility for approximately 2 weeks. For approximately one week he has had worsening shortness of breath, intermittent cough. He denies any chest pain. He denies any significant weight gain or swelling in his legs. He does not feel significantly short of breath when lying flat. He denies any fever or chills at home. Cough is nonproductive. The patient has had several bouts of pneumonia recently requiring IV antibiotics. Pain Scale: 0 - Related Data Home Medications Medication Instructions Recorded Confirmed Aspirin 325 mg PO DAILY 02/24/17 02/22/19 Metoprolol XL (24 HR) Succ [Toprol 25 mg PO BID 02/24/17 02/22/19 Xl] Omeprazole [PriLOSEC] 40 mg PO DAILY 02/24/17 02/22/19 Atorvastatin [Lipitor] 40 mg PO HS 01/17/19 02/22/19 Dexamethasone [Decadron] 4 mg PO DAILY 02/22/19 02/22/19 Terazosin HCl 2 mg PO HS 02/22/19 02/23/19 Previous Rx's Medication Instructions Recorded Furosemide [Lasix] 40 mg PO BID #60 tab 02/25/19 Allergies Allergy/AdvReac Type Severity Reaction Status Date / Time carvedilol AdvReac Gastrointestinal Verified 02/23/19 14:33 Upset rivaroxaban [From Xarelto] AdvReac See Verified 02/23/19 14:33 Comments Review of Systems: ROS per history of present illness, all other systems reviewed and negative or normal. All systems ED: reviewed and negative except as stated. Review of Systems: As Per HPI Past Medical History - Past Medical History Medical history: Reports: arthritis, atrial fibrillation, CHF, hypertension, RA Surgical history: Reports: orthopedic, other (c-spine surgery - February 2017) Psychiatric history: Reports: no psych history - Social History Smoking Status: Never smoker Smokeless Tobacco Status: No Alcohol use: Reports: occasionally Drug use: Reports: none Physical Exam General: Conversant. No apparent distress. Follow commands. Appears stated age. Neck: No JVD. Trachea midline. Neck supple. Eyes: PERRL. No scleral icterus. HENT: Normocephalic and atraumatic. Moist mucus membranes. Cardiovascular: Regular rate and rhythm. Normal S1 and S2. No murmurs appreciated. Normal capillary refill. Extremities well perfused with 2+ distal pulses bilaterally. No edema. Pulmonary: Patient has coarse breath sounds left greater than right especially at the bases. Not tachypneic or in respiratory distress. No wheezing or crackles. Abdomen: Soft, nondistended, and tontender. No bruits or masses. No guarding. Neuro: Alert and oriented x3. No slurred speech. No focal deficits noted. Skin: No rashes noted on visualized skin. Musculoskeletal: No bony abnormalities visualized. Moves all extremities. Psych: Normal mood. Pleasant. Makes appropriate eye contact. - General Limitations: no limitations General appearance: alert, in no apparent distress Course Vital Signs Temperature 97.4 F L 03/24/19 16:30 Pulse Rate 80 03/24/19 16:30 Respiratory Rate 20 03/24/19 16:30 Blood Pressure 155/71 03/24/19 16:30 O2 Sat by Pulse Oximetry 98 03/24/19 16:30 Temperature 97.4 F L 03/24/19 16:30 Pulse Rate 89 03/24/19 20:33 Respiratory Rate 16 03/24/19 20:33 Blood Pressure 137/104 03/24/19 20:33 O2 Sat by Pulse Oximetry 98 03/24/19 20:33 Oxygen Delivery Oxygen Delivery Room Air Medical Decision Making - MDM Narrative Medical decision making narrative: 88-year-old male with history of CHF and multiple episodes of pneumonia or the last several months who presents the emergency department with complaints of shortness of breath. The patient does have coarse breath sounds on examination but is saturating well on room air. He is not significantly tachypneic. He denies any significant leg swelling or orthopnea. Laboratory evaluation i ncluding CBC and BMP showed a chronic kidneys disease and anemia but otherwise there is no significant leukocytosis. EKG shows baseline A. fib. Chest x-ray shows evidence of left-sided pneumonia. Given the patient's significant comorbidities, recent hospitalization and subsequent rehabilitation facility as well as multiple episodes of recent pneumonia we will treat him with more broad-spectrum antibiotics to ensure resolution. Discussed case with on-call hospitalist Dr. Alatorre who agrees with plan for admission and accepts the patient to the inpatient service. Patient agrees with and understands course of treatment plan including plan for admission. All questions answered. - Medical Records Medical records reviewed: Yes I reviewed the patient's medical records. - Lab Data Lab results reviewed: Yes I reviewed the patient's lab results. Result diagrams: 03/24/19 18:03 03/24/19 18:03 Lab Results 03/24/19 03/24/19 Range/Units 18:03 18:03 WBC 6.5 (4.3-11.1) K/mcL RBC 3.16 L (4.19-5.50) M/mcL Hgb 10.0 L (12.9-16.9) g/dL Hct 31.8 L (37.5-50.1) % MCV 100.6 H (83.0-100.0) fL MCH 31.6 (28.0-33.3) pg MCHC 31.4 L (31.6-35.5) g/dL RDW 17.7 H (11.5-14.5) % Plt Count 135 L (140-400) K/mcL MPV 10.5 (9.4-12.4) fL Immature Gran % 1.2 (0-4) % Seg Neutrophils % 78.7 % Lymphocytes % 13.6 % Monocytes % 6.3 % Eosinophils % 0.0 % Basophils % 0.2 % Neutrophils # 5.1 (1.6-8.9) K/mcL Lymphocytes # 0.9 (0.6-4.6) K/mcL Monocytes # 0.4 (0.0-1.3) K/mcL Eosinophils # 0.0 (0.0-0.6) K/mcL Basophils # 0.0 (0.0-0.2) K/mcL Sodium 142 (136-145) mEq/L Potassium 4.3 (3.5-5.1) mEq/L Chloride 101 (98-107) mEq/L Carbon Dioxide 30 H (23-29) mEq/L BUN 68 H (8-23) mg/dL Creatinine 1.77 H (0.70-1.30) mg/dL Est GFR ( Amer) 44 L (> 60) Est GFR (Non-Af Amer) 36 L (> 60) BUN/Creatinine Ratio 38 H (6-26) Glucose 126 H (70-105) mg/dL Calculated Osmolality 315 H (280-300) Calcium 9.4 (8.6-10.3) mg/dL - Radiology Data Radiology results reviewed: Yes I reviewed the patient's radiology results. Chest X-Ray 03/24/19 17:26 IMPRESSION: Focal consolidation in the left lower lobe suggesting left lower lobe pneumonia. Recommend follow-up to resolution. D/ / Chalino Escalante MD / Chalino Escalante MD Interpreting Provider: Chalino Escalante MD - EKG Data EKG #1 EKG attestation: Yes I reviewed and interpreted this EKG. EKG results narrative: Atrial fibrillation rate of 88. Left bundle branch block. When compared with prior from 02/22/19 there are no significant changes. No acute ischemic changes. Negative scarbossa.
[2019-03-24 18:33] LABS: Basophils % 0.2 %; Hematocrit 31.8 % (37.5-50.1); Immature Granulocytes % 1.2 % (0-4); Lymphocytes # 0.9 K/mcL (0.6-4.6); Lymphocytes % 13.6 %; Mean Corpuscular HGB Conc 31.4 g/dL (31.6-35.5); Mean Corpuscular Hemoglobin 31.6 pg (28.0-33.3); Mean Corpuscular Volume 100.6 fL (83.0-100.0); Mean Platelet Volume 10.5 fL (9.4-12.4); Monocytes # 0.4 K/mcL (0.0-1.3); Monocytes % 6.3 %; Neutrophils # 5.1 K/mcL (1.6-8.9); Platelet Count 135 K/mcL (140-400); Red Blood Count 3.16 M/mcL (4.19-5.50); Red Cell Distribution Width 17.7 % (11.5-14.5); Segmented Neutrophils % 78.7 %; White Blood Count 6.5 K/mcL (4.3-11.1)
[2019-03-24 18:48] LABS: Calcium 9.4 mg/dL (8.6-10.3); Potassium 4.3 mEq/L (3.5-5.1)
[2019-03-24] MEDS ORDERED: cefTRIAXone 1,000 MG in Water for inj. (sterile) 20 ML 10 ML IVP ONE (19:02)
[2019-03-24] MEDS ORDERED: Azithromycin 500 MG in D5% in Water 250 ML IVPB ONE (19:02)
[2019-03-24] MEDS ORDERED: Piperacillin/Tazobactam 3.375 GM in 0.9 % Sodium Chloride Mini Bag 100 ML IVPB ONE (19:13)
[2019-03-24] MEDS ORDERED: levoFLOXacin 500 MG/100 ML 500 MG/100 ML BAG IVPB ONE (19:13)
[2019-03-24] MEDS ORDERED: Vancomycin (wt based) 1,000 MG VIAL IVPB STA (19:14)
--- NOTE | 2019-03-24 19:21 | Emergency Department Note ---
Disposition Clinical Impression: HCAP (healthcare-associated pneumonia) CKD (chronic kidney disease) Qualifiers: Chronic kidney disease stage: unspecified stage Qualified Code(s): N18.9 - Chronic kidney disease, unspecified Heart failure Qualifiers: Heart failure type: unspecified Heart failure chronicity: chronic Qualified Code(s): I50.9 - Heart failure, unspecified Disposition: Admitted As Inpatient Condition: Fair Referrals: Yari Dukes MD [Primary Care Provider] - Forms: ED Satisfaction Letter Time of Disposition: 19:34 General Adult HPI - General Chief complaint: ED Shortness of Breath/Dyspnea Stated complaint: CARLOS Congestion Time Seen by Provider: 03/24/19 17:02 Source: patient, family Limitations: no limitations - History of Present Illness Pain Scale: 0 - Related Data Home Medications Medication Instructions Recorded Confirmed Aspirin 325 mg PO DAILY 02/24/17 02/22/19 Metoprolol XL (24 HR) Succ [Toprol 25 mg PO BID 02/24/17 02/22/19 Xl] Omeprazole [PriLOSEC] 40 mg PO DAILY 02/24/17 02/22/19 Atorvastatin [Lipitor] 40 mg PO HS 01/17/19 02/22/19 Dexamethasone [Decadron] 4 mg PO DAILY 02/22/19 02/22/19 Terazosin HCl 2 mg PO HS 02/22/19 02/23/19 Previous Rx's Medication Instructions Recorded Furosemide [Lasix] 40 mg PO BID #60 tab 02/25/19 Allergies Allergy/AdvReac Type Severity Reaction Status Date / Time carvedilol AdvReac Gastrointestinal Verified 02/23/19 14:33 Upset rivaroxaban [From Xarelto] AdvReac See Verified 02/23/19 14:33 Comments Past Medical History - Past Medical History Medical history: Reports: arthritis, atrial fibrillation, CHF, hypertension, RA Surgical history: Reports: orthopedic, other (c-spine surgery - February 2017) Psychiatric history: Reports: no psych history - Social History Smoking Status: Never smoker Smokeless Tobacco Status: No Alcohol use: Reports: occasionally Drug use: Reports: none Physical Exam - General Limitations: no limitations General appearance: alert, in no apparent distress Course Vital Signs Temperature 97.4 F L 03/24/19 16:30 Pulse Rate 80 03/24/19 16:30 Respiratory Rate 20 03/24/19 16:30 Blood Pressure 155/71 03/24/19 16:30 O2 Sat by Pulse Oximetry 98 03/24/19 16:30 Temperature 97.4 F L 03/24/19 16:30 Pulse Rate 70 03/24/19 18:02 Respiratory Rate 14 03/24/19 18:02 Blood Pressure 155/71 03/24/19 16:30 O2 Sat by Pulse Oximetry 99 03/24/19 18:02 Oxygen Delivery Oxygen Delivery Room Air Medical Decision Making - Lab Data Result diagrams: 03/24/19 18:03 03/24/19 18:03 Lab Results 03/24/19 03/24/19 Range/Units 18:03 18:03 WBC 6.5 (4.3-11.1) K/mcL RBC 3.16 L (4.19-5.50) M/mcL Hgb 10.0 L (12.9-16.9) g/dL Hct 31.8 L (37.5-50.1) % MCV 100.6 H (83.0-100.0) fL MCH 31.6 (28.0-33.3) pg MCHC 31.4 L (31.6-35.5) g/dL RDW 17.7 H (11.5-14.5) % Plt Count 135 L (140-400) K/mcL MPV 10.5 (9.4-12.4) fL Immature Gran % 1.2 (0-4) % Seg Neutrophils % 78.7 % Lymphocytes % 13.6 % Monocytes % 6.3 % Eosinophils % 0.0 % Basophils % 0.2 % Neutrophils # 5.1 (1.6-8.9) K/mcL Lymphocytes # 0.9 (0.6-4.6) K/mcL Monocytes # 0.4 (0.0-1.3) K/mcL Eosinophils # 0.0 (0.0-0.6) K/mcL Basophils # 0.0 (0.0-0.2) K/mcL Sodium 142 (136-145) mEq/L Potassium 4.3 (3.5-5.1) mEq/L Chloride 101 (98-107) mEq/L Carbon Dioxide 30 H (23-29) mEq/L BUN 68 H (8-23) mg/dL Creatinine 1.77 H (0.70-1.30) mg/dL Est GFR ( Amer) 44 L (> 60) Est GFR (Non-Af Amer) 36 L (> 60) BUN/Creatinine Ratio 38 H (6-26) Glucose 126 H (70-105) mg/dL Calculated Osmolality 315 H (280-300) Calcium 9.4 (8.6-10.3) mg/dL Attestation Statement - Attestation Attestation: I examined this patient and my medical decision-making was reviewed with the Resident Physician. I agree with the documented findings, disposition and treatment plan as described except to the extent set forth below. Patient was started about of pneumonia in the last few months. He was discharged from the hospital to a rehabilitation facility a month ago, went home from the rehabilitation facility on March 11. Given his multiple comorbidities, the fact that he is on dexamethasone 2 mg a day which is a mild immunosuppressant, and his hospitalization followed by 2 weeks in a ehabilitation facility, as well as his multiple doses of antibiotics over the last few months, we have sent blood cultures and initiated broad-spectrum antibiotic therapy to cover drug resistant pathogens. Procedure, emergency point of care ultrasound for volume assessment: Procedure performed by me, images archived in PACS. The infrahepatic inferior vena cava was well visualized and measured at 2.5 cm 4 cm from the atrial-caval junction. There was no compression with inhalation or sniffing. Exam is consistent with a CVP greater than 8, likely volume overload, certainly not volume depletion despite the elevated BUN/creatinine ratio. IV fluids were not administered due to this ultrasound finding. PORT 129, Class IV. The hospitalist has been paged for admission.
[2019-03-24] MEDS ORDERED: Naloxone 0.4 MG/ML INJ IVP PRN (20:46)
[2019-03-24] MEDS ORDERED: Vancomycin (wt based) 1,000 MG VIAL IVPB SCH (21:00)
[2019-03-24 21:17] LABS: Bilirubin,Urine Negative (Negative); Blood,Urine Negative (Negative); Clarity,Urine Clear (Clear); Color,Urine Yellow (Yellow); Glucose,Urine (UA) Normal (Normal); Ketones,Urine Negative (Negative); Leukocyte Esterase,Urine Negative (Negative); Nitrite,Urine Negative (Negative); Protein,Urine Negative (Neg-Trace); Specific Gravity,Urine < 1.005 (1.010-1.025); Urobilinogen,Urine Normal (Normal)
[2019-03-24] MEDS: Metoprolol XL (24 HR) Succ 50 MG TAB.ER.24H PO SCH (22:27)
[2019-03-24] MEDS: Furosemide 20 MG TABLET PO SCH (22:30)
[2019-03-24] MEDS: *HR* Heparin 5,000 UNIT/ML VIAL SQ SCH (22:49)
--- NOTE | 2019-03-25 03:44 | Internal Med History&Physical ---
Date of Encounter: 03/24/19 Time of Encounter: 20:00 Internal Medicine - H&P: HPI Chief complaint: Shortness of breath History of present illness: Mr. Oconnor is a 88 year old male with a past medical history of CHF, atrial fibrillation, hypertension and rheumatoid arthritis who presented to the ED with complaints of shortness of breath. Of note, patient was recently hospitalized in late February for CHF exacerbation. He was subsequently transferred to a rehabilitation facility for 2 weeks following discharge. Patient states that for the past week or so, he has been having shortness of breath with intermittent cough that is nonproductive. No reports of fever or chills. Denies any chest pain or orthopnea but does endorse 2 episodes of paroxysmal nocturnal dyspnea last night. No significant lower extremity edema. On arrival patient was afebrile, hemodynamically stable with a normal heart rate. No evidence of tachypnea Laboratory workup was unremarkable including a normal white blood cell count and mildly elevated creatinine which appears to be chronic and at baseline. EKG showed baseline atrial fibrillation. A chest x- ray was performed concerning for left-sided pneumonia. Chest CT shows previously seen left upper lobe lingular pneumonia has essentially resolved with persistent wedgelike atelectatic changes in the lingula. Small left and trace right pleural effusions. Patient was started on broad-spectrum antibiotics and admitted for possible HCAP. On my assessment patient was sitting in bed, non- tachypneic, nonseptic in appearance currently not requiring oxygen. Past Med Surg Social Fam HX - Past Medical History Medical history: arthritis, atrial fibrillation, CHF, hypertension, RA Additional medical history: PAF Psychiatric history: no psych history - Past Surgical History Surgical History: orthopedic, other (c-spine surgery - February 2017) Additional surgical history: CARPAL TUNNEL RELEASE. I&D OF HIP. spine surgery Dr. Coto - Social History Smoking Status: Never smoker Smokeless Tobacco Status: No Alcohol use: occasionally Drug use: none - Family History Son Hx Family Cardiac Disorders: Yes (a fib, stents, HTN) Internal Medicine - H&P: Meds Aspirin 325 mg PO DAILY 02/24/17 [History] Metoprolol XL (24 HR) Succ [Toprol Xl] 25 mg PO BID 02/24/17 [History] Omeprazole [PriLOSEC] 40 mg PO DAILY 02/24/17 [History] Atorvastatin [Lipitor] 40 mg PO HS 01/17/19 [History] Dexamethasone [Decadron] 2 mg PO DAILY 02/22/19 [History] Terazosin HCl 2 mg PO HS 02/22/19 [History] Furosemide [Lasix] 40 mg PO BID #60 tab 02/25/19 [Rx] Allergy/AdvReac Type Severity Reaction Status Date / Time carvedilol AdvReac Gastrointestinal Verified 02/23/19 14:33 Upset rivaroxaban [From Xarelto] AdvReac See Verified 02/23/19 14:33 Comments All Systems PM: A 10-system review of systems was performed and is negative for pertinent findings except as documented above in the HPI. - Constitutional Constitutional: no chills, no fever(s), no night sweats - EENT Eyes: no change in vision, no discharge, no pain, no photophobia Ears: no ear discharge, no ear pain, no tinnitus Nose, mouth and throat: no dysphagia, no nasal discharge, no neck pain, no sore throat - Cardiovascular Cardiovascular ROS IM: no chest pain, no diaphoresis, no dyspnea, no lightheadedness, no palpitations, no syncope - Respiratory Respiratory: no cough, no dyspnea, no wheezing, no excessive phlegm production - Gastrointestinal Gastrointestinal: no abdominal pain, no diarrhea, no hematemesis, no hematochezia, no melena, no nausea, no vomiting - Musculoskeletal Musculoskeletal ROS IM: no numbness, no tingling - Integumentary Integumentary IM: no rash, no unusual bruising - Neurological Neurological ROS: no confusion, no convulsions, no focal weakness, no numbness, no tingling, no tremor(s) - Hematologic/Lymphatic Hematologic/Lymphatic: no easy bruising - Constitutional Vitals: Temp Pulse Resp BP Pulse Ox 97.7 F 82 16 156/73 98 03/24/19 22:09 03/24/19 22:09 03/24/19 22:09 03/24/19 22:09 03/24/19 22:09 Exam: General: Alert and oriented Skin:Normal color, no rash, no lesions. HEENT:EOM, pupils equal, round and reactive. Cardiovascular:Normal S1 & S2, no rubs, murmurs or gallops. No JVD. Pulse re gular. Lungs:Normal breath sounds, no wheezes or crackles. Abdomen:Soft, non-tender, no rigidity. Extremities:No deformity, no edema or tenderness, no joint swelling or clubbing. Neurological:Normal cognition and motor skills. Pulses:Carotid and radial pulses normal +2. Rest of the physical exam is non contributory Internal Med - H&P Results - Labs CBC & Chem 7: 03/25/19 04:23 03/25/19 04:23 Labs: Short CBC 03/24/19 Range/Units 18:03 WBC 6.5 (4.3-11.1) K/mcL Hgb 10.0 L (12.9-16.9) g/dL Hct 31.8 L (37.5-50.1) % Plt Count 135 L (140-400) K/mcL Neutrophils # 5.1 (1.6-8.9) K/mcL BMP 03/24/19 18:03 Sodium 142 Potassium 4.3 Chloride 101 Carbon Dioxide 30 H BUN 68 H Creatinine 1.77 H Glucose 126 H Calcium 9.4 Urine 03/24/19 Range/Units 20:47 Urine Color Yellow (Yellow) Urine Clarity Clear (Clear) Urine pH 7.0 (5.0-8.0) pH Units Ur Specific [place] < 1.005 L (1.010-1.025) Urine Protein Negative (Neg-Trace) mg/dL Urine Glucose (UA) Normal (Normal) mg/dL - Impressions ITS Impressions Chest X-Ray 03/24/19 17:26 IMPRESSION: Focal consolidation in the left lower lobe suggesting left lower lobe pneumonia. Recommend follow-up to resolution. D/ / Chalino Escalante MD / Chalino Escalante MD Interpreting Provider: Chalino Escalante MD Chest CT 03/24/19 20:44 IMPRESSION: Previously seen left upper lobe/lingular pneumonia has essentially resolved however there are persistent wedge-like atelectatic changes in the lingula. Small left and trace right pleural effusions. Right basilar atelectatic changes as seen previously. Gallstones. D/ / Noel Garner MD / Noel Garner MD Interpreting Provider: Noel Garner MD - Assessment and Plan (1) Shortness of breath Current Visit: Yes Status: Acute Assessment and plan: Patient presenting with intermittent shortness of breath primarily with exertion with one episode of PND. Initial concern for healthcare associated pneumonia given initial chest x-ray findings. However chest CT shows resolution of previous left lingular pneumonia with only atelectatic changes and trace pleural effusions. Given these findings and the absence of any fever, tachypnea or le ukocytosis, I have low suspicion for underlying pneumonia at this time. There may be a some underlying component of fluid overload versus deconditioning. Ultrasound performed in the ED of the [facility] was consistent with a central venous pressure greater than 8 concerning for possible volume overload. -Recommend monitoring for now. We will obtain a pro-calcitonin; strep in the Legionella urine antigen. Follow-up blood cultures. Consider resuming antibiotics if any of these results come back positive. (2) Combined systolic and diastolic congestive heart failure Current Visit: No Status: Acute Assessment and plan: History of congestive heart failure for which patient was recently admitted and treated for. Patient does have trace bilateral pleural effusions. Ultrasound in the ED of the [facility] consistent with a central venous pressure of 8 concerning for mild volume overload. Patient appears to be euvolemic on physical examination with only trace lower extremity edema. At this time not too co nvinced patient has CHF and if so, likely mild. -Continue strict I's and O's; daily weights -Continue patient's home Lasix -Continue patient's beta lashay and statin. Qualifiers: Qualified Code(s): I50.40 - Unspecified combined systolic (congestive) and diastolic (congestive) heart failure (3) CKD (chronic kidney disease) Current Visit: Yes Status: Acute Assessment and plan: History of chronic kidney disease with a creatinine of 1.7 which appears to be at patient's baseline. We will continue to monitor. Qualifiers: Chronic kidney disease stage: unspecified stage Qualified Code(s): N18.9 - Chronic kidney disease, unspecified (4) DVT prophylaxis Current Visit: No Status: Acute Assessment and plan: Subcutaneous heparin - Time Spent With Patient Total time spent is greater than 50% in coordination of care (as documented) at patient's floor/unit and/or counseling patient:
[2019-03-25] MEDS: Piperacillin/Tazobactam 3.375 GM in 0.9 % Sodium Chloride Mini Bag 100 ML IVPB SCH ×2 (04:11→12:37)
[2019-03-25 05:06] LABS: Basophils % 0.2 %; Eosinophils % 0.3 %; Hematocrit 31.1 % (37.5-50.1); Hemoglobin 9.7 g/dL (12.9-16.9); Immature Granulocytes % 1.3 % (0-4); Lymphocytes # 0.9 K/mcL (0.6-4.6); Lymphocytes % 14.2 %; Mean Corpuscular HGB Conc 31.2 g/dL (31.6-35.5); Mean Corpuscular Hemoglobin 31.5 pg (28.0-33.3); Mean Platelet Volume 10.8 fL (9.4-12.4); Monocytes # 0.5 K/mcL (0.0-1.3); Monocytes % 7.9 %; Neutrophils # 4.6 K/mcL (1.6-8.9); Platelet Count 122 K/mcL (140-400); Red Blood Count 3.08 M/mcL (4.19-5.50); Red Cell Distribution Width 17.9 % (11.5-14.5); Segmented Neutrophils % 76.1 %; White Blood Count 6.1 K/mcL (4.3-11.1)
[2019-03-25 05:24] LABS: Albumin 3.4 g/dL (3.5-5.7); Albumin/Globulin Ratio 1.4 (1.1-2.2); Bilirubin,Total 0.8 mg/dL (0.3-1.0); Calcium 8.8 mg/dL (8.6-10.3); Globulin 2.5 g/dL (2.4-3.5); Potassium 4.1 mEq/L (3.5-5.1); Total Protein 5.9 g/dL (6.4-8.9)
[2019-03-25] MEDS: *HR* Heparin 5,000 UNIT/ML VIAL SQ SCH ×3 (06:36→20:42)
[2019-03-25] MEDS: Metoprolol XL (24 HR) Succ 50 MG TAB.ER.24H PO SCH ×2 (07:39→20:41)
[2019-03-25] MEDS: Furosemide 20 MG TABLET PO SCH ×2 (07:39→17:20)
[2019-03-25] MEDS: Aspirin 325 MG TABLET PO SCH (07:39)
--- NOTE | 2019-03-25 12:15 | Event Note ---
Date of Encounter: 03/25/19 Time of Encounter: 11:42 88 year old male with CHF, afib presented for SOB, recently hospitalized for CHF exacerbation. Patient also with some volume overload on presentation. O: VS: reviewed Labs: reviewed, MRSA screen positive, procalcitonin is 0.21 Physical exam: NAD, CVS: RRR, lungs: good air exchange, no wheezing, no rhonchi, ext: trace pedal both lower extremities Plan to treat emperically for pneumonia until workup is complete, Currently on Vanc/Zosyn, repeat procal in AM. continue Lasix home dose, monitor I/Os, fluid restriction.
--- NOTE | 2019-03-25 14:08 | Electrocardiograph Report ---
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
[2019-03-25] MEDS: Ipratropium/Albuterol Neb 3 ML IH SCH ×2 (15:44→20:19)
[2019-03-25 15:48] LABS: Adenovirus Not Detected (Not Detect); Coronavirus 229E Not Detected (Not Detect); Coronavirus HKU1 Not Detected (Not Detect); Coronavirus NL63 Not Detected (Not Detect); Coronavirus OC43 Not Detected (Not Detect)
[2019-03-25 15:49] LABS: Bordetella Pertussis Not Detected (Not Detect); Chlamydophila pneumoniae Not Detected (Not Detect); Human Metapneumovirus Not Detected (Not Detect); Human Rhinovirus/Enterovirus Not Detected (Not Detect); Influenza A Subtype 2009 H1 Not Detected (Not Detect); Influenza A Untypeable Not Detected (Not Detect); Influenza B Not Detected (Not Detect); Mycoplasma pneumoniae Not Detected (Not Detect); Parainfluenza Virus 1 Not Detected (Not Detect); Parainfluenza Virus 2 Not Detected (Not Detect); Parainfluenza Virus 3 Not Detected (Not Detect); Parainfluenza Virus 4 Not Detected (Not Detect); Respiratory Syncytial Virus Not Detected (Not Detect)
[2019-03-25] MEDS: cefTRIAXone 1,000 MG in 0.9 % Sodium Chloride Mini Bag 100 ML IVPB SCH (17:20)
[2019-03-26] MEDS: Ipratropium/Albuterol Neb 3 ML IH SCH ×7 (00:01→23:57)
[2019-03-26] MEDS: *HR* Heparin 5,000 UNIT/ML VIAL SQ SCH ×3 (05:52→20:59)
[2019-03-26] MEDS: Metoprolol XL (24 HR) Succ 50 MG TAB.ER.24H PO SCH ×2 (07:41→20:59)
[2019-03-26] MEDS: Aspirin 325 MG TABLET PO SCH (07:42)
[2019-03-26] MEDS: cefTRIAXone 1,000 MG in 0.9 % Sodium Chloride Mini Bag 100 ML IVPB SCH (07:42)
[2019-03-26] MEDS: Furosemide 40 MG TABLET PO SCH ×2 (07:42→13:31)
[2019-03-26 08:26] LABS: Basophils % 0.3 %; Eosinophils % 0.1 %; Hemoglobin 10.1 g/dL (12.9-16.9); Immature Granulocytes % 1.7 % (0-4); Lymphocytes # 1.2 K/mcL (0.6-4.6); Mean Corpuscular HGB Conc 30.6 g/dL (31.6-35.5); Mean Corpuscular Hemoglobin 31.2 pg (28.0-33.3); Mean Corpuscular Volume 101.9 fL (83.0-100.0); Mean Platelet Volume 9.9 fL (9.4-12.4); Monocytes # 0.6 K/mcL (0.0-1.3); Monocytes % 7.3 %; Neutrophils # 5.8 K/mcL (1.6-8.9); Platelet Count 126 K/mcL (140-400); Red Blood Count 3.24 M/mcL (4.19-5.50); Red Cell Distribution Width 17.7 % (11.5-14.5); Segmented Neutrophils % 75.6 %; White Blood Count 7.7 K/mcL (4.3-11.1)
[2019-03-26 08:45] LABS: Calcium 9.1 mg/dL (8.6-10.3); Potassium 3.9 mEq/L (3.5-5.1)
[2019-03-26] MEDS ORDERED: Aminoglycoside Consult 1 EACH MC ONE (11:54)
--- NOTE | 2019-03-26 12:04 | Internal Med Progress Note ---
Hospitalist Progress Note - Encounter Date of Encounter: 03/26/19 Time of Encounter: 12:00 - Subjective Interval History: No acute events. Patient states breathing better with breathing treatments and phlegm is breaking up this morning which helped him breath better. No fevers. No chest pain. - Exam Vitals: Temp Pulse Resp BP Pulse Ox 97.5 F L 86 16 143/81 96 03/26/19 11:18 03/26/19 11:18 03/26/19 11:18 03/26/19 11:18 03/26/19 11:18 Exam: General: Alert and oriented Skin:Normal color, no rash, no lesions. HEENT:EOM, pupils equal, round and reactive. Cardiovascular:Normal S1 & S2, no rubs, murmurs or gallops. No JVD. Pulse regular. Lungs:Normal breath sounds, no wheezes or crackles. Abdomen:Soft, non-tender, no rigidity. Extremities:No deformity, no edema or tenderness, no joint swelling or clubbing. Neurological:Normal cognition and motor skills. Pulses:Carotid and radial pulses normal +2. - Assessment and Plan (1) Shortness of breath Current Visit: Yes Status: Acute Assessment and Plan: Patient presenting with intermittent shortness of breath primarily with exertion with one episode of PND. Initial concern for healthcare associated pneumonia given initial chest x-ray findings. However chest CT shows resolution of previous left lingular pneumonia with only atelectatic changes and trace pleural effusions. 0 SIRS criteria met, and did not present as a bacterial pneumonia. However, strep pneumo antigen was positive (though he was here several weeks ago for pneumonia which could be positive result), and procalcitonin remains elevated at 0.20 (though he does have CKD). Should continue antibiotics in this case. There may also be component of fluid overload and so Lasix and fluid restriction will be continued. (2) Combined systolic and diastolic congestive heart failure Current Visit: No Status: Acute Assessment and Plan: History of congestive heart failure for which patient was recently admitted and treated for. Patient does have trace bilateral pleural effusions. Ultrasound in the ED of the [facility] consistent with a central venous pressure of 8 concerning for mild volume overload. Patient appears to be euvolemic on physical examination with only trace lower extremity edema. At this time not too convinced patient has CHF and if so, likely mild. -Continue strict I's and O's; daily weights -Continue patient's home Lasix -Continue patient's beta lashay and statin. (3) CKD (chronic kidney disease) Current Visit: Yes Status: Acute Assessment and Plan: History of chronic kidney disease with a creatinine of 1.7 which appears to be at patient's baseline. We will continue to monitor. (4) DVT prophylaxis Current Visit: No Status: Acute Assessment and Plan: Subcutaneous heparin - Time Spent with Patient Total time spent is greater than 50% in coordination of care (as documented) at patient's floor/unit and/or counseling patient: Internal Medicine: Result - Labs CBC & Chem 7: 03/26/19 08:12 03/26/19 08:12 Labs: Short CBC 03/26/19 Range/Units 08:12 WBC 7.7 (4.3-11.1) K/mcL Hgb 10.1 L (12.9-16.9) g/dL Hct 33.0 L (37.5-50.1) % Plt Count 126 L (140-400) K/mcL Neutrophils # 5.8 (1.6-8.9) K/mcL BMP 03/26/19 08:12 Sodium 143 Potassium 3.9 Chloride 102 Carbon Dioxide 32 H BUN 64 H Creatinine 1.68 H Glucose 113 H Calcium 9.1 Consult Discharge Plan - Plan Referrals: Yari Dukes MD [Primary Care Provider] - (2) Combined systolic and diastolic congestive heart failure Qualifiers: Qualified Code(s): I50.40 - Unspecified combined systolic (congestive) and d iastolic (congestive) heart failure (3) CKD (chronic kidney disease) Qualifiers: Chronic kidney disease stage: unspecified stage Qualified Code(s): N18.9 - Chronic kidney disease, unspecified
[2019-03-27 01:43] LABS: Basophils % 0.1 %; Eosinophils % 0.1 %; Hematocrit 30.6 % (37.5-50.1); Hemoglobin 9.4 g/dL (12.9-16.9); Immature Granulocytes % 1.6 % (0-4); Lymphocytes # 0.9 K/mcL (0.6-4.6); Lymphocytes % 12.4 %; Mean Corpuscular HGB Conc 30.7 g/dL (31.6-35.5); Mean Corpuscular Hemoglobin 30.9 pg (28.0-33.3); Mean Corpuscular Volume 100.7 fL (83.0-100.0); Mean Platelet Volume 10.8 fL (9.4-12.4); Monocytes # 0.5 K/mcL (0.0-1.3); Monocytes % 7.4 %; Neutrophils # 5.4 K/mcL (1.6-8.9); Platelet Count 142 K/mcL (140-400); Red Blood Count 3.04 M/mcL (4.19-5.50); Red Cell Distribution Width 17.7 % (11.5-14.5); Segmented Neutrophils % 78.4 %; White Blood Count 6.9 K/mcL (4.3-11.1)
[2019-03-27 02:05] LABS: Calcium 8.9 mg/dL (8.6-10.3); Potassium 4.4 mEq/L (3.5-5.1)
[2019-03-27] MEDS: Ipratropium/Albuterol Neb 3 ML IH SCH ×3 (04:47→11:12)
[2019-03-27] MEDS: *HR* Heparin 5,000 UNIT/ML VIAL SQ SCH (05:35)
--- NOTE | 2019-03-27 07:47 | Internal Med Progress Note ---
Hospitalist Progress Note - Encounter Date of Encounter: 03/27/19 - Exam Vitals: Temp Pulse Resp BP Pulse Ox 97.5 F L 88 16 138/84 98 03/27/19 07:04 03/27/19 07:04 03/27/19 07:04 03/27/19 07:04 03/27/19 07:04 - Assessment and Plan (1) Shortness of breath Current Visit: Yes Status: Acute (2) Combined systolic and diastolic congestive heart failure Current Visit: No Status: Acute (3) CKD (chronic kidney disease) Current Visit: Yes Status: Acute (4) DVT prophylaxis Current Visit: No Status: Acute - Time Spent with Patient Total time spent is greater than 50% in coordination of care (as documented) at patient's floor/unit and/or counseling patient: Internal Medicine: Result - Labs CBC & Chem 7: 03/27/19 01:17 03/27/19 01:17 Labs: Short CBC 03/26/19 03/27/19 Range/Units 08:12 01:17 WBC 7.7 6.9 (4.3-11.1) K/mcL Hgb 10.1 L 9.4 L (12.9-16.9) g/dL Hct 33.0 L 30.6 L (37.5-50.1) % Plt Count 126 L 142 (140-400) K/mcL Neutrophils # 5.8 5.4 (1.6-8.9) K/mcL BMP 03/26/19 03/27/19 08:12 01:17 Sodium 143 139 Potassium 3.9 4.4 Chloride 102 100 Carbon Dioxide 32 H 29 BUN 64 H 68 H Creatinine 1.68 H 1.66 H Glucose 113 H 137 H Calcium 9.1 8.9 Consult Discharge Plan - Plan Referrals: Yari Dukes MD [Primary Care Provider] - (2) Combined systolic and diastolic congestive heart failure Qualifiers: Qualified Code(s): I50.40 - Unspecified combined systolic (congestive) and diastolic (congestive) heart failure (3) CKD (chronic kidney disease) Qualifiers: Chronic kidney disease stage: unspecified stage Qualified Code(s): N18.9 - Chronic kidney disease, unspecified
[2019-03-27] MEDS: Metoprolol XL (24 HR) Succ 50 MG TAB.ER.24H PO SCH (09:10)
[2019-03-27] MEDS: Furosemide 40 MG TABLET PO SCH (09:10)
[2019-03-27] MEDS: Aspirin 325 MG TABLET PO SCH (09:11)
[2019-03-27] MEDS: cefTRIAXone 1,000 MG in 0.9 % Sodium Chloride Mini Bag 100 ML IVPB SCH (09:12)
[2019-03-27] MEDS ORDERED: Doxycycline 100 MG CAPSULE PO SCH (10:00)
--- NOTE | 2019-03-27 11:03 | Discharge Summary ---
- NOTES TO OUTPATIENT PROVIDER Notes to Outpatient Provider: follow-up BMP. Monitor fluid status, adjust diuretics as tolerated. Augmentin/Doxy on DC. Orders not resulted at time of discharge: Pending orders 03/24/19 19:10 Culture,Blood [BC] Stat 03/26/19 10:22 Mycoplasma pneumoniae IgG IgM Routine 03/28/19 04:00 BMP [Basic Metabolic Panel] AM 0400 Complete Blood Count [HEME] AM 0400 Date of Encounter: 03/27/19 Time of Encounter: 11:00 - Discharge Diagnosis (1) Shortness of breath Priority: Primary Status: Acute (2) Combined systolic and diastolic congestive heart failure Priority: Secondary Status: Acute Qualifiers: Qualified Code(s): I50.40 - Unspecified combined systolic (congestive) and diastolic (congestive) heart failure (3) CKD (chronic kidney disease) Priority: Secondary Status: Acute Qualifiers: Chronic kidney disease stage: unspecified stage Qualified Code(s): N18.9 - Chronic kidney disease, unspecified (4) DVT prophylaxis Priority: Secondary Status: Acute Hospital course: Mr. Oconnor is a 88 year old male with a past medical history of CHF, atrial fibrillation, hypertension and rheumatoid arthritis who presented to the ED with complaints of shortness of breath. Of note, patient was recently hospitalized in late February for CHF exacerbation. He was subsequently transferred to a rehabilitation facility for 2 weeks following discharge. Patient states that for the past week or so, he has been having shortness of breath with intermittent cough that is nonproductive. No reports of fever or chills. Denies any chest pain or orthopnea but does endorse 2 episodes of paroxysmal nocturnal dyspnea last night. No significant lower extremity edema. On arrival patient was afebrile, hemodynamically stable with a normal heart rate. No evidence of tachypnea Laboratory workup was unremarkable including a normal white blood cell count and mildly elevated creatinine which appears to be chronic and at baseline. EKG showed baseline atrial fibrillation. A chest x- ray was performed concerning for left-sided pneumonia. Chest CT shows previously seen left upper lobe lingular pneumonia has essentially resolved with persistent wedgelike atelectatic changes in the lingula. Small left and trace right pleural effusions. Patient was started on broad-spectrum antibiotics and admitted for possible HCAP. Admitted for further care, fluid restricted and resumed on Lasix. Breathing improved with scheduled Duo Nebs, Mucinex, Rocephin/Vancomycin. He tested Strep ag positive and MRSA positive. These positive tests could both be from prior hospitalization in January and February, but also could be new. He was on Rocephin and Vancomycin. Procalcitonin was 0.20-0.21 serial but this was likely due to chronic renal disease. He was transitioned to Augmentin and Doxycycline on discharge and discharged home in stable condition. - Time Spent with Patient Total time spent providing and/or coordinating discharge services: - Discharge Medications Prescriptions: New Amoxicillin/Clavulanate [Augmentin] 500 mg PO BIDWM #10 tablet Doxycycline 100 mg PO BID #10 capsule GuaiFENesin ER [Mucinex] 1,200 mg PO BID #10 tbbp.12hr Continued Omeprazole [PriLOSEC] 40 mg PO DAILY Metoprolol XL (24 HR) Succ [Toprol Xl] 25 mg PO BID Aspirin 325 mg PO DAILY Atorvastatin [Lipitor] 40 mg PO HS Dexamethasone [Decadron] 2 mg PO DAILY Terazosin HCl 2 mg PO HS Furosemide [Lasix] 40 mg PO BID #60 tab Home Medications: Aspirin 325 mg PO DAILY 02/24/17 [History] Metoprolol XL (24 HR) Succ [Toprol Xl] 25 mg PO BID 02/24/17 [History] Omeprazole [PriLOSEC] 40 mg PO DAILY 02/24/17 [History] Atorvastatin [Lipitor] 40 mg PO HS 01/17/19 [History] Dexamethasone [Decadron] 2 mg PO DAILY 02/22/19 [History] Terazosin HCl 2 mg PO HS 02/22/19 [History] Furosemide [Lasix] 40 mg PO BID #60 tab 02/25/19 [Rx] Amoxicillin/Clavulanate [Augmentin] 500 mg PO BIDWM #10 tablet 03/27/19 [Rx] Doxycycline 100 mg PO BID #10 capsule 03/27/19 [Rx] GuaiFENesin ER [Mucinex] 1,200 mg PO BID #10 tbbp.12hr 03/27/19 [Rx] Allergies/Adverse Reactions: Allergy/AdvReac Type Severity Reaction Status Date / Time carvedilol AdvReac Gastrointestinal Verified 02/23/19 14:33 Upset rivaroxaban [From Xarelto] AdvReac See Verified 02/23/19 14:33 Comments Date of admission: 03/24/19 21:03 Primary care physician: Yari Dukes Consults: 03/24/19 20:44 Consult to Nurse Navigator [CONS] Routine Comment: Discharging clinician: Carlos Alicea - Constitutional Vitals: Temp Pulse Resp BP Pulse Ox 97.5 F L 88 16 138/84 98 03/27/19 07:04 03/27/19 07:04 03/27/19 07:49 03/27/19 07:04 03/27/19 07:49 Exam: General: Alert and oriented Skin:Normal color, no rash, no lesions. HEENT:EOM, pupils equal, round and reactive. Cardiovascular:Normal S1 & S2, no rubs, murmurs or gallops. No JVD. Pulse regular. Lungs:Normal breath sounds, no wheezes or crackles. Abdomen:Soft, non-tender, no rigidity. Extremities:No deformity, no edema or tenderness, no joint swelling or clubbing. Neurological:Normal cognition and motor skills. Pulses:Carotid and radial pulses normal +2. - Patient Status Disposition: Home, Self-Care Condition: Fair Functional capacity at discharge: independent ambulation Overall status at discharge: patient is progressing back to baseline - Ambulatory Orders Ambulatory Orders: Basic Metabolic Panel [CHEM] Time Frame: 3 Days, Facility: [facility], Location: Lab - Discharge Instructions Follow Up With: Yari Dukes MD [Primary Care Provider] - (IN 3 days) - Diet and Activity Activity: increase activity as tolerated Diet: advance to your usual diet
[2019-03-27 11:22] VITALS: BP 136/72
[2019-03-27] MEDS ORDERED: Amoxicillin/Clavulanate 500 MG TABLET PO SCH (17:00)
[2019-03-29 10:22] LABS: Mycoplasma pneumoniae IgG 0.41 U/L (<=0.09)
== END 2019-03-27 11:55 | disposition home or self-care (01) ==
LOC: 2ANU 16:27 → EMEROOARM 16:27 → SUATTDRO 21:03 → 2ANU 21:44
PROVIDERS: ADMIT Internal Medicine; ATTEND Student in an Organized Health Care Education/Training Program